=== PATIENT | male | born 1955 | race Caucasian/White ===

== ENCOUNTER 2025-03-02 | Inpatient (IN) | payer MEDICARE, OTHER ==
[2025-03-02] VITALS (15 sets, daily range): BP systolic 115–143; BP diastolic 49–70; PULSE 58–72; RESP 17–99; TEMP 97.8–98.7; O2SAT 97–99
[~2025-03-02] VITALS: Ht 185.4 cm; Wt 148.6 kg
[2025-03-02 01:18] LABS: Hematocrit 19.5 % (41.0-53.0); Mean Corpuscular Hemoglobin 22.3 pg (28.0-32.0); Mean Corpuscular Volume 75.3 fL (80.0-100.0); Nucleated Red Blood Cells % 0.0 %
[2025-03-02 01:22] LABS: Hemoglobin 5.8 g/dL (13.5-17.5)
--- NOTE | 2025-03-02 01:31 | ED.PDOC ---
History of Present Illness HPI Comments 69 y/o obese M is BIBA as a transfer from [facility] with c/c of shortness of breath and generalized weakness. Patient was transferred after being found with a Hgb of 6.4 when evaluated for 3x day history of symptoms. Significant history of anemia, AFib - Eliquis, HTN, and right nephrectomy s/p right renal carcinoma with metastasis. Denial of any chest pain, shortness of breath, rectal bleeding, bloody stools, or further associated symptoms. Chief Complaint: General Weakness Time Seen by MD: 00:00 Reviewed Notes: Nurses Notes, Crown Pouncer Notes, Medications, Allergies Allergies: Coded Allergies: Statins (Verified Allergy, Unknown, 03/02/25) Information Source: Patient, Emergency Med Personnel Mode of Arrival: EMS Severity: Moderate Timing: Days Duration: Since onset Prehospital treatment: 12 Lead EKG, Principal Planner Past Medical History PAST MEDICAL HISTORY: AFIB, Cancer (right renal cell carcinoma with metastati s), HTN Surgical History: Cholecystectomy Surgical History (Other): right nephrectomy Family History Family History: Unknown Social History Smoker: Non-Smoker Alcohol: Denies ETOH Use Drugs: Denies Drug Use Lives In: Home All Other Systems: Reviewed and Negative (Comprehensive systems review obtained and negative except for what is stated in the HPI.) Physical Exam General Appearance: Moderate Distress HEENT: Normal ENT Inspection, Pharynx Normal, TMs Normal Neck: Full Range of Motion, Non-Tender, Normal, Normal Inspection Respiratory: Chest Non-Tender, Lungs Clear, No Accessory Muscle Use, No Respiratory Distress, Normal Breath Sounds Cardiovascular: No Edema, No JVD, No Murmur, No Gallop, Normal Peripheral Pulses, Regular Rate/Rhythm Breast Exam: Deferred Gastrointestinal: No Organomegaly, Non Tender, No Pulsatile Mass, Normal Bowel Sounds, Soft Genitalia: Deferred Pelvic: Deferred Rectal: Deferred Extremities: No calf tenderness, Normal capillary refill, Normal inspection, Normal range of motion, Non-tender, No pedal edema Musculoskeletal : Apperance: Normal Neurologic: Alert, strap folding machine operator II-XII nml as Tested, No Motor Deficits, Normal Affect, Normal Mood, No Sensory Deficits Cerebellar Function: NOT DONE Reflexes: NOT DONE Skin: Pallor Peripheral Pulses: 3+ Radial (R), 3+ Radial (L) Lymphatic: No Adenopathy Was a procedure done? Was a procedure done?: No Differential Dx Considerations may include: anemia, URI, PNA, PE, ACS, OR, among others X-Ray, Labs, Meds, VS Vital Signs Date Time Temp Pulse Resp B/P (MAP) Pulse Ox O2 Delivery O2 Flow Rate FiO2 03/02/25 03:41 97.8 68 19 143/57 97.8 03/02/25 03:23 97.9 72 20 130/55 97.9 03/02/25 02:00 68 17 127/27 (60) 97 03/02/25 01:38 62 03/02/25 00:17 Room Air* 0 21 03/02/25 00:17 97.4 63 12 144/59 (87) 100 97.4 03/02/25 00:00 98.6 68 17 125/63 98 98.6 Lab Test 03/02/25 02:31 03/02/25 01:01 Range/Units Troponin I High Sensitivity 5 4 </=54 ng/L White Blood Count 8.7 4.4-10.8 10^3/uL Red Blood Count 2.59 L 4.5-5.90 10^6/uL Hemoglobin 5.8 *L 13.5-17.5 g/dL Hematocrit 19.5 L 41.0-53.0 % Mean Corpuscular Volume 75.3 L 80.0-100.0 fL Mean Corpuscular Hemoglobin 22.3 L 28.0-32.0 pg Mean Corpuscular Hemoglobin Concent 29.7 L 32.0-36.0 g/dL Red Cell Distribution Width 19.2 H 11.8-14.3 % Platelet Count 397 140-450 10^3/uL Mean Platelet Volume 7.0 6.9-10.8 fL Neutrophils (%) (Auto) 66.2 37.0-80.0 % Lymphocytes (%) (Auto) 21.3 10.0-50.0 % Monocytes (%) (Auto) 7.0 0.0-12.0 % Eosinophils (%) (Auto) 4.1 0.0-7.0 % Basophils (%) (Auto) 1.4 0.0-2.0 % Neutrophils # (Auto) 5.7 1.6-8.6 10 ^3/uL Lymphocytes # (Auto) 1.8 0.4-5.4 10 ^3/uL Monocytes # (Auto) 0.6 0-1.3 10 ^3/uL Eosinophils # (Auto) 0.4 0-0.8 10 ^3/uL Basophils # (Auto) 0.1 0-0.2 10 ^3/uL Nucleated Red Blood Cells 0.0 % Platelet Estimate [place] Large Platelets Few Hypochromasia (manual) Moderate Microcytosis Slight Ovalocytes Few Stomatocytes Few Prothrombin Time 11.3 9.3-11.8 sec Prothrombin Time INR 1.07 0.9-1.15 Activated Partial Thromboplast Time 27.9 24.5-34.5 SEC Sodium Level 141 136-145 mmol/L Potassium Level 4.1 3.5-5.1 mmol/L Chloride Level 109 H 98-107 mmol/L Carbon Dioxide Level 23 20-31 mmol/L Anion Gap 9 5-15 Blood Urea Nitrogen 27 H 9-23 mg/dL Creatinine 1.28 0.700-1.30 mg/dL Glomerular Filtration Rate Calc 60 >90 mL/min BUN/Creatinine Ratio 21.1 H 10.0-20.0 Serum Glucose 99 74-106 mg/dL Calcium Level 8.4 L 8.7-10.4 mg/dL Iron Level 14 L 65-175 ug/dL Total Iron Binding Capacity 365 250-425 ug/dL Percent Iron Saturation 3.8 L 20-55 % Ferritin Pending Total Bilirubin 0.5 0.2-1.0 mg/dL Aspartate Amino Transferase (AST) 18 13-40 U/L Alanine Aminotransferase (ALT) 14 7-40 U/L Alkaline Phosphatase 153 H 46-116 U/L B-Type Natriuretic Peptide 34.79 0-100 pg/mL Total Protein 6.2 5.7-8.2 g/dL Albumin 3.5 3.2-4.8 g/dL Vitamin B12 Level Pending Vitamin D 25-Hydroxy Pending Folic Acid Pending Thyroid Stimulating Hormone (TSH) 2.40 0.55-4.78 uIU/mL [address] [address] Ph: [phone] DIAGNOSTIC IMAGING Diagnostic Imaging Report : [id number] Signed PATIENT: ANABEL HOLLEY ACCT: [id number] UNIT: [id number] : 1955 LOC: ER ROOM / BED: / AGE / SEX: 69 / M ADM STATUS: REG ER SERVICE 000 ORDERING PHYSICIAN: VERITO JONES MD PROCEDURE(s): CXRP - CHEST PORTABLE REASON: sob ORDER NUMBER(s): [id number], ACCESSION NUMBER(s): [id number] CHEST RADIOGRAPH Indication: sob Technique: 1 view Comparison: None FINDINGS: Lines and Tubes: None Lungs/Pleura: Perihilar interstitial prominence. No focal consolidation, pleural effusion or pneumothorax. Cardiomediastinum: Enlarged heart size. Central pulmonary vascular prominence. Other: No acute osseous abnormality. IMPRESSION: 1. Heart failure pattern without focal consolidation. ATED BY: SANAM TAYLOR MD DICTATED DATE/TIME: 03/02/25245 SIGNED BY: SANAM TAYLOR MD SIGNED DATE/TIME: 03/02/25245 CC: Patient alert. Pale. He does take a blood thinner. Vitals stable. History of atrial fibrillation. Cardiac marker within normal limits. He is on a blood thinner. Denies bleeding. Hemoglobin is low. Blood transfusion. Reviewed his visit two with a base. Continue to monitoring. Time of 1ST Reevaluation: 00:30 Reevaluation 1ST: Unchanged Patient Education/Counseling: Diagnosis, Treatment Family Education/Counseling: No Family Present SEPSIS Sepsis Screen Date sepsis recognized/suspect: Mar 02, 2025 Time Sepsis recognized/suspect: 0000 Recent Procedure: No On Antibiotic Therapy: No Respiratory Rate >20: No Heart Rate >90: No Temp<36 C (96.8 F) or >38.3 C: No SBP <90 or MAP <65 mmHG: No New Acute Mental Status Change: No Is the patient on CPAP, BIPAP,: No Physician Orders Chest Portable (03/02/25 00:06) Urinalysis (03/02/25 00:06) Type And Screen (03/02/25 00:55) Electrocardigram (03/02/25 02:17) Admit (03/02/25 03:53) Nitroglycerin Sublingual (Ntrostat Subli (03/02/25 04:00) Morphine Sulfate Injection (03/02/25 04:00) Oxygen By Nasal Cannula (03/02/25 03:53) Stat Ekg For Chest Pain (03/02/25 03:53) Notify Md Of Changes From Base (03/02/25 03:53) Cloth Examiner Hand For 24 Hours (03/02/25 03:53) Emergency Dysrhythmia Protocol (03/02/25 03:53) Rhythm Strips Once Every Shift (03/02/25 03:53) Vital Signs Date Time Temp Pulse Resp B/P (MAP) Pulse Ox O2 Delivery O2 Flow Rate FiO2 03/02/25 03:41 97.8 68 19 143/57 97.8 03/02/25 03:23 97.9 72 20 130/55 97.9 03/02/25 02:00 68 17 127/27 (60) 97 03/02/25 01:38 62 03/02/25 00:17 Room Air* 0 21 03/02/25 00:17 97.4 63 12 144/59 (87) 100 97.4 03/02/25 00:00 98.6 68 17 125/63 98 98.6 Laboratory Tests Test 03/02/25 01:01 White Blood Count 8.7 10^3/uL (4.4-10.8) Departure 1 Departure Time of Disposition: 01:43 Impression: Primary Impression: Atrial fibrillation Qualified Codes: I48.0 - Paroxysmal atrial fibrillation Additional Impression: Severe anemia Disposition: ADMITTED INPATIENT Admit to: Med Surg Condition: Guarded Critical Care Note Critical Care Time?: Yes (90 min-critical care time only) Stability Stability form required: No Heart Score Heart Score: Heart Score Response (Comments) Value History Slightly Suspicious 0 EKG Normal 0 Age >65 2 Risk Factors >3 or Hx ASHD 2 Troponin Normal limit 0 Total 4 I personally scribed for VERITO JONES MD ([email or web address]) on 03/02/25 at 01:31. Electronically submitted by Haris Farias ([email or web address]). I personally scribed for VERITO JONES MD ([email or web address]) on 03/02/25 at 05:01. Electronically submitted by Haris Farias ([email or web address]). VERITO JONES MD Mar 02, 2025 01:31
[2025-03-02 01:36] LABS: Alanine Aminotransferase 14 U/L (7-40); Albumin 3.5 g/dL (3.2-4.8); Anion Gap 9 (5-15); BUN/Creatinine Ratio 21.1 (10.0-20.0); Bilirubin, Total 0.5 mg/dL (0.2-1.0); Carbon Dioxide 23 mmol/L (20-31); Glucose 99 mg/dL (74-106); Potassium 4.1 mmol/L (3.5-5.1); Sodium 141 mmol/L (136-145); Total Protein 6.2 g/dL (5.7-8.2)
[2025-03-02 01:37] LABS: Alkaline Phosphatase 153 U/L (46-116); Blood Urea Nitrogen 27 mg/dL (9-23); Calcium 8.4 mg/dL (8.7-10.4); Chloride 109 mmol/L (98-107)
[2025-03-02 01:54] LABS: Ovalocytes FEW; Stomatocytes Few
--- NOTE | 2025-03-02 02:49 | DVH ---
CHEST RADIOGRAPH Indication: sob Technique: 1 view Comparison: None FINDINGS: Lines and Tubes: None Lungs/Pleura: Perihilar interstitial prominence. No focal consolidation, pleural effusion or pneumoth orax. Cardiomediastinum: Enlarged heart size. Central pulmonary vascular prominence. Other: No acute osseous abnormality. IMPRESSION: 1. Heart failure pattern without focal consolidation.
[2025-03-02] MEDS ORDERED: NITROGLYCERIN 0.4 MG SL TAB SL PRN (04:00)
[2025-03-02] MEDS ORDERED: MORPHINE SULFATE INJ 2 MG/ml SYRG IV PRN (04:00)
--- NOTE | 2025-03-02 04:06 | DVHHP2 ---
History of Present Illness History of Present Illness Patient is 69-year-old male who came to the hospital with a chief complaint of generalized fatigability and generalized weakness for the past 7-10 days. Patient also complaining of shortness of breath for past 3-5 days as well. As per patient and his , patient had flu-like symptoms 7-10 days ago, was told at urgent Care that patient might have lung infection, treated with antibiotic, repeat x-ray came clear at urgent care. However patient continued to have generalized weakness and fatigue that prompted visit at one of the [facility] in [place]. 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 At [facility], patient found to hemoglobin 6.4, that prompted visit to [facility]. At the time of evaluation, patient denied any dark stool or prashanth blood in stool. During further evaluation patient found hemoglobin 5.8, 1 unit of PRBC initiated. At the time of 4:30 a.m. on 03/02/2025, patient reported that he had dark tarry blood stool. No abdominal pain, no chest pain, no shortness of breath, no motor or sensory weakness at this point. Patient denied fever, chills, any other symptoms as well. Past medical history: RCC in 2010, metastasis to pancreas in 2022, metastasis to lung in 2024, atrial fibrillation rate controlled, hypertension, CKD 3A Past surgical history, right nephrectomy in 2010, Whipple surgery in 2022, cryoablation in 2024, cholecystectomy in 2004 Allergy, none Family history unremarkable Personal history noncontributory Home medication: Eliquis 5 mg p.o. b.i.d., colesevelam 625 mg twice daily, metoprolol succinate 12.5 mg p.o. b.i.d., lisinopril 5 mg p.o. daily, flecainide 50 mg p.o. b.i.d., vitamin-D and iron supplement. Review of Systems Constitutional: No: Fever, Chills, Sweats, Weakness, Malaise, Other Eyes: No: Pain, Vision change, Conjunctivae inflammation, Eyelid inflammation, Other, Redness ENT: No: Ear pain, Ear discharge, Nose pain, Nose discharge, Nose congestion, Mouth pain, Mouth swelling, Throat pain, Throat swelling, Other Respiratory: No: Cough, Dry, Shortness of breath, SOB with excertion, Wheezing, Hemoptysis, Pleuritic Pain, Sputum, Wheezing, Other Cardiovascular: No: Chest Pain, Palpitations, Orthopnea, Paroxysmal Noc. Dyspnea, Edema, Lt Headedness, Other Gastrointestinal: No: Nausea, Vomiting, Abdominal Pain, Diarrhea, Constipation, Melena, Hematochezia, Other Genitourinary: No Dysuria, No Frequency, No Incontinence, No Hematuria, No Retention, No Other Musculoskeletal: No: other, neck pain, shoulder pain, arm pain, back pain, hand pain, leg pain, foot pain Neurological: Weakness; No: Numbness, Incoordination, Change in speech, Confusion, Seizures, Other Allergies: Coded Allergies: Statins (Verified Allergy, Unknown, 03/02/25) Medications Current Medications Medications Dose Ordered Sig/Fransico Route Start Time Stop Time Status Last Admin Dose Admin Nitroglycerin 0.4 mg Q5MINP PRN SL 03/02/25 04:00 Morphine Sulfate 2 mg Q30M PRN IV 03/02/25 04:00 Pantoprazole Sodium 40 mg DAILY IV 03/02/25 10:00 UNV Metoprolol Succinate 25 mg DAILY PO 03/02/25 10:00 UNV Lisinopril 5 mg DAILY PO 03/02/25 10:00 UNV Flecainide Acetate 50 mg Q12HR PO 03/02/25 10:00 UNV Exam Vital Signs Vital Signs Date Time Temp Pulse Resp B/P (MAP) Pulse Ox O2 Delivery O2 Flow Rate FiO2 03/02/25 03:41 97.8 68 19 143/57 97.8 03/02/25 02:00 97 03/02/25 00:17 Room Air* 0 21 Exam General Appearance: Cooperative. Well developed. Well nourished. NAD Head Exam: Normal inspection, pale conjunctivae Neck Exam: Normal inspection. Non-tender. Normal alignment Pulmonary/Respiratory: Chest non-tender. Clear bilateral breath sounds Cardiovascular/Chest: Regular rate and rhythm. No murmurs. No JVD. Peripheral Pulses: 2+ Radial (R). 2+ Radial (L). 2+ Pedal (R). 2+ Pedal (L) Abdominal Exam: Normal bowel sounds. Soft. Nontender. No hepatospenomegaly. No masses Ankle Exam: Negative ankle edema Lower extremities: Negative lower extremity edema Neuro/Mental Status: A&O x4. Coherent Thoughts/Psych: Normal thought pattern. Appropriate mood and affect. Good judgement and insight Appearance: In no acute distress Skin Exam: Normal inspection. Normal color. Warm. Dry Labs/Xrays Labs Test 03/02/25 02:31 03/02/25 01:01 Range/Units Troponin I High Sensitivity 5 </=54 ng/L White Blood Count 8.7 4.4-10.8 10^3/uL Red Blood Count 2.59 L 4.5-5.90 10^6/uL Hemoglobin 5.8 *L 13.5-17.5 g/dL Hematocrit 19.5 L 41.0-53.0 % Mean Corpuscular Volume 75.3 L 80.0-100.0 fL Mean Corpuscular Hemoglobin 22.3 L 28.0-32.0 pg Mean Corpuscular Hemoglobin Concent 29.7 L 32.0-36.0 g/dL Red Cell Distribution Width 19.2 H 11.8-14.3 % Platelet Count 397 140-450 10^3/uL Mean Platelet Volume 7.0 6.9-10.8 fL Neutrophils (%) (Auto) 66.2 37.0-80.0 % Lymphocytes (%) (Auto) 21.3 10.0-50.0 % Monocytes (%) (Auto) 7.0 0.0-12.0 % Eosinophils (%) (Auto) 4.1 0.0-7.0 % Basophils (%) (Auto) 1.4 0.0-2.0 % Neutrophils # (Auto) 5.7 1.6-8.6 10 ^3/uL Lymphocytes # (Auto) 1.8 0.4-5.4 10 ^3/uL Monocytes # (Auto) 0.6 0-1.3 10 ^3/uL Eosinophils # (Auto) 0.4 0-0.8 10 ^3/uL Basophils # (Auto) 0.1 0-0.2 10 ^3/uL Nucleated Red Blood Cells 0.0 % Platelet Estimate [place] Large Platelets Few Hypochromasia (manual) Moderate Microcytosis Slight Ovalocytes Few Stomatocytes Few Sodium Level 141 136-145 mmol/L Potassium Level 4.1 3.5-5.1 mmol/L Chloride Level 109 H 98-107 mmol/L Carbon Dioxide Level 23 20-31 mmol/L Anion Gap 9 5-15 Blood Urea Nitrogen 27 H 9-23 mg/dL Creatinine 1.28 0.700-1.30 mg/dL Glomerular Filtration Rate Calc 60 >90 mL/min BUN/Creatinine Ratio 21.1 H 10.0-20.0 Serum Glucose 99 74-106 mg/dL Calcium Level 8.4 L 8.7-10.4 mg/dL Total Bilirubin 0.5 0.2-1.0 mg/dL Aspartate Amino Transferase (AST) 18 13-40 U/L Alanine Aminotransferase (ALT) 14 7-40 U/L Alkaline Phosphatase 153 H 46-116 U/L B-Type Natriuretic Peptide 34.79 0-100 pg/mL Total Protein 6.2 5.7-8.2 g/dL Albumin 3.5 3.2-4.8 g/dL SEPSIS Sepsis Screen Date sepsis recognized/suspect: Mar 02, 2025 Time Sepsis recognized/suspect: 0017 Recent Procedure: No On Antibiotic Therapy: No Respiratory Rate >20: No Heart Rate >90: No Temp<36 C (96.8 F) or >38.3 C: No SBP <90 or MAP <65 mmHG: No New Acute Mental Status Change: No Is the patient on CPAP, BIPAP,: No Physician Orders Chest Portable (03/02/25 00:06) Urinalysis (03/02/25 00:06) Type And Screen (03/02/25 00:55) Electrocardigram (03/02/25 02:17) Admit (03/02/25 03:53) Nitroglycerin Sublingual (Ntrostat Subli (03/02/25 04:00) Morphine Sulfate Injection (03/02/25 04:00) Oxygen By Nasal Cannula (03/02/25 03:53) Stat Ekg For Chest Pain (03/02/25 03:53) Notify Md Of Changes From Base (03/02/25 03:53) Fibrous Plasterer For 24 Hours (03/02/25 03:53) Emergency Dysrhythmia Protocol (03/02/25 03:53) Rhythm Strips Once Every Shift (03/02/25 03:53) Thyroid Stimulating Hormone (03/02/25 03:53) PTPTT (03/02/25 03:53) Magnesium (03/03/25 04:00) Pt Request For Service (03/02/25 03:53) Iron Panel (03/02/25 03:53) Ferritin (03/02/25 03:53) Stool Occult Blood (03/02/25 03:56) * [facility] Storekeeper Engineering (03/02/25 03:56) Pantoprazole (Protonix) (03/02/25 10:00) Pantoprazole (Protonix) (03/02/25 04:00) Metoprolol Xl Succinate (Toprol Xl) (03/02/25 10:00) Lisinopril Tablet (Zestril Tablet) (03/02/25 10:00) Flecainide Tablet (Tambocor Tablet) (03/02/25 10:00) * Cardiology Consult (03/02/25 03:59) Sequential Compression Device (03/02/25 04:00) Vitamin B12 (03/02/25 04:00) Folate (Folic Acid) (03/02/25 04:00) Vitamin D, 25-Hydroxy (03/02/25 04:00) Hemoglobin & Hematocrit (03/02/25 10:00) Vital Signs Date Time Temp Pulse Resp B/P (MAP) Pulse Ox O2 Delivery O2 Flow Rate FiO2 03/02/25 03:41 97.8 68 19 143/57 97.8 03/02/25 03:23 97.9 72 20 130/55 97.9 03/02/25 02:00 68 17 127/27 (60) 97 03/02/25 01:38 62 03/02/25 00:17 Room Air* 0 21 03/02/25 00:17 97.4 63 12 144/59 (87) 100 97.4 03/02/25 00:00 98.6 68 17 125/63 98 98.6 Laboratory Tests Test 03/02/25 01:01 White Blood Count 8.7 10^3/uL (4.4-10.8) Assessment/Plan Assessment/Plan Active lower GI bleed Severe microcytic hypochromic anemia Iron-deficiency anemia Renal cell carcinoma, metastasis to pancreas and lung Shortness of breath likely due to severe anemia/lung metastasis Hypertension Permanent Atrial fibrillation rate controlled CKD stage IIIA History of cholecystectomy Cardiomegaly History of biliary obstruction Dyslipidemia Plan/recommendation -IV Protonix 80 mg total bolus, IV Protonix drip, pending stool occult blood, GI consultation -GI consultation for further evaluation for lower GI bleed, possible upper or lower GI endoscopy. -Continue to monitor H&H q.12. -Iron-deficiency with low iron at 14, TIBC 365, saturation 3.8. IV iron sucrose 500 mg *5 bags -Atrial fibrillation: Continue metoprolol succinate 25 mg p.o. daily, flecainide 50 mg p.o. b.i.d., hold Eliquis given severe lower GI bleed/anemia. Cardiology consultation -CKD stage IIIA: Continue to monitor kidney function -Chest x-ray showed cardiomegaly without any consultation, no signs of CHF -Patient and his lives in [place], they have primary care physician and oncologist over there. -Poor prognosis -PUD prophylaxis with Protonix, DVT prophylaxis with SCD. Plan discussed with Dr. Xie Plan discussed with: Patient, Other My Orders Orders - RAYMOND SANTOS RESIDENT Procedure Category Date Status Time Admit ADMIT 03/02/25 Transmitted 03:53 Nitroglycerin PHA 03/02/25 In Process Sublingual (Ntrostat 04:00 Morphine Sulfate PHA 03/02/25 In Process Injection 04:00 Oxygen By Nasal RT 03/02/25 Transmitted Cannula 03:53 Stat Ekg For Chest BANNER 03/02/25 In Process Pain 03:53 Notify Of Changes BANNER 03/02/25 In Process From Base 03:53 Fibrous Plasterer For FATMATA 03/02/25 In Process 24 Hours 03:53 Emergency Dysrhythmia FATMATA 03/02/25 In Process Protocol 03:53 Rhythm Strips Once BANNER 03/02/25 In Process Every Shift 03:53 Thyroid Stimulating LAB 03/02/25 Logged Hormone 03:53 PTPTT LAB 03/02/25 Logged 03:53 Magnesium LAB 03/03/25 Verified 04:00 Pt Request For Service PT 03/02/25 Logged 03:53 Iron Panel LAB 03/02/25 Logged 03:53 Ferritin LAB 03/02/25 Logged 03:53 Stool Occult Blood LAB 03/02/25 Logged 03:56 * [facility] [employer] CONS 03/02/25 Transmitted 03:56 Pantoprazole PHA 03/02/25 Logged (Protonix) 10:00 Pantoprazole PHA 03/02/25 Logged (Protonix) 04:00 Metoprolol Xl PHA 03/02/25 Logged Succinate (Toprol Xl) 10:00 Lisinopril Tablet PHA 03/02/25 Logged (Zestril Tablet) 10:00 Flecainide Tablet PHA 03/02/25 Logged (Tambocor Tablet) 10:00 * Cardiology Consult CONS 03/02/25 Transmitted 03:59 Sequential FATMATA 03/02/25 In Process Compression Device 04:00 Vitamin B12 LAB 03/02/25 Logged 04:00 Folate (Folic Acid) LAB 03/02/25 Logged 04:00 Vitamin D, 25-Hydroxy LAB 03/02/25 Logged 04:00 Hemoglobin & LAB 03/02/25 Logged Hematocrit 10:00 Date of Service: Mar 02, 2025 Billing Provider: DENNISE LU MD Common Visit Codes: [id number] INP/OBS CARE (HIGH) RAYMOND SANTOS RESIDENT Mar 02, 2025 04:06
[2025-03-02 04:33] LABS: Iron 14.0 ug/dL (65-175)
[2025-03-02 04:35] LABS: Total Iron Binding Capacity 365.0 ug/dL (250-425)
[2025-03-02 04:39] LABS: INR 1.07 (0.9-1.15); Partial Thromboplastin Time 27.9 SEC (24.5-34.5); Prothrombin Time 11.3 sec (9.3-11.8)
[2025-03-02] MEDS: PANTOPRAZOLE 40 MG/10 ML VIAL INJ IV ONE ×2 (04:48→05:26)
[2025-03-02] MEDS: PANTOPRAZOLE 40mg/50ML NS AE 50 ML IV SCH (05:29)
[2025-03-02] MEDS ORDERED: [UNRECOGNIZED DRUG - CODE] PO (07:02)
[2025-03-02] MEDS: METOPROLOL SUCCINATE XL 50 MG TAB PO SCH (09:55)
[2025-03-02] MEDS: FLECAINIDE ACETATE 50 MG TAB PO SCH (09:56)
[2025-03-02] MEDS: LISINOPRIL 5 MG TAB PO SCH (09:56)
[2025-03-02] MEDS ORDERED: PANTOPRAZOLE 40 MG/10 ML VIAL INJ IV SCH (10:00)
[2025-03-02 10:59] LABS: Urine Protein, UAD Negative (Negative)
--- NOTE | 2025-03-02 11:10 | DVHINCON2 ---
Date Seen: Mar 02, 2025 Referring Physician MD Anne Reason for Consultation A-fib History of Present Illness This is a pleasant 69-year-old male who presented to the emergency room as a transfer from [facility] ([facility]) with a chief complaint of severe anemia. The patient reports that approximately a week ago he started developing generalized weakness, increased fatigue, shortness of breath, and chest pain with symptom progression prompting him to seek further medical attention. [facility] emergency room records were reviewed revealing a 12 lead electrocardiogram with a normal sinus rhythm and no evidence of acute ST-T wave changes, a negative troponin level, Hgb/Hct 6.4/21.9, platelets 467, Creatinine 1.5, negative Influenza A&B, and negative COVID-19. Reports dark tarry stools for the first time last night. Denies hematemesis or epistaxis. He last took Eliquis 5 mg the morning of . Follows up with primary manager of housekeeping in [place] with last follow-up completed 4 months ago. Last non-ischemic stress test was completed on August,. Denies any cardiac catheterizations in the past. 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 Past Medical History Past medical history reviewed. No other significant than mentioned above. Past Surgical History Right nephrectomy, 2010 Whipple procedure, 2022 Pulmonary cryoablation, 2024 Cholecystectomy Bilateral knees Family History Family history reviewed. Social History Denies the use of illicit drugs, alcohol, or tobacco use. Allergies: Coded Allergies: Statins (Verified Allergy, Unknown, 03/02/25) Home Meds Reported Medications Colesevelam Hcl (Welchol) 3.75 Gm Jt, 625 MG PO BID, PACK 03/02/25 Home Meds Home medications reviewed. Current Medications Current Medications Medications (Trade) Dose Ordered Sig/Fransico Route PRN Reason Start Time Stop Time Status Last Admin Nitroglycerin (Ntrostat Sublingual) 0.4 mg Q5MINP PRN SL FOR CHEST PAIN 03/02/25 04:00 Morphine Sulfate 2 mg Q30M PRN IV FOR CHEST PAIN 03/02/25 04:00 Pantoprazole Sodium (Protonix) 40 mg DAILY IV 03/02/25 10:00 03/02/25 07:37 DC Metoprolol Succinate (Toprol Xl) 25 mg DAILY PO 03/02/25 10:00 Lisinopril (Zestril Tablet) 5 mg DAILY PO 03/02/25 10:00 Flecainide Acetate (Tambocor Tablet) 50 mg Q12HR PO 03/02/25 10:00 03/02/25 09:56 Pantoprazole Sodium 50 ml @ 10 mls/hr Q5H IV 03/02/25 05:00 03/02/25 09:54 Iron Sucrose 110 ml @ 110 mls/hr DAILY@1200 IV 03/02/25 12:00 03/06/25 12:59 Review of Systems Constitutional: Fatigue, generalized weakness Ears, Nose, & Throat: No symptom reported Eyes: No symptom reported Neurological: No symptoms reported Pulmonary/Respiratory: SOB Cardiovascular: Chest pain Gastrointestinal: No symptom reported Genitourinary: No symptom reported Musculoskeletal: No symptom reported Skin: No symptom reported Psychiatric: No symptom reported Endocrine: No symptom reported Hemotologic/Lymphatic: No symptom reported Vital Signs Vital Signs Date Time Temp Pulse Resp B/P (MAP) Pulse Ox O2 Delivery O2 Flow Rate FiO2 03/02/25 09:56 115/56 03/02/25 09:55 58 03/02/25 09:00 98.2 20 97 98.2 03/02/25 06:31 Room Air* 0 21 Physical Exam General Appearance: Cooperative. Well developed. Obese. In no acute distress Head Exam: Normal inspection Neck Exam: Normal inspection. Non-tender. Normal alignment Pulmonary/Respiratory: Chest non-tender. Clear bilateral breath sounds Cardiovascular/Chest: Regular rate and rhythm. S1, S2. NSR. No murmurs. No JVD. Peripheral Pulses: 2+ Radial (R). 2+ Radial (L). 2+ Pedal (R). 2+ Pedal (L) Abdominal Exam: Normal bowel sounds Ankle Exam: Negative ankle edema Lower extremities: Negative lower extremity edema Neuro/Mental Status: A&O x4. Coherent Thoughts/Psych: Normal thought pattern. Appropriate mood and affect. Good judgement and insight Appearance: In no acute distress Skin Exam: Normal inspection. Pale color. Warm. Dry Labs/Diagnostic Data Labs Test 03/02/25 10:36 03/02/25 02:31 03/02/25 01:01 Range/Units Troponin I High Sensitivity 5 </=54 ng/L White Blood Count 8.7 4.4-10.8 10^3/uL Red Blood Count 2.59 L 4.5-5.90 10^6/uL Hemoglobin 5.8 *L 13.5-17.5 g/dL Hematocrit 19.5 L 41.0-53.0 % Mean Corpuscular Volume 75.3 L 80.0-100.0 fL Mean Corpuscular Hemoglobin 22.3 L 28.0-32.0 pg Mean Corpuscular Hemoglobin Concent 29.7 L 32.0-36.0 g/dL Red Cell Distribution Width 19.2 H 11.8-14.3 % Platelet Count 397 140-450 10^3/uL Mean Platelet Volume 7.0 6.9-10.8 fL Neutrophils (%) (Auto) 66.2 37.0-80.0 % Lymphocytes (%) (Auto) 21.3 10.0-50.0 % Monocytes (%) (Auto) 7.0 0.0-12.0 % Eosinophils (%) (Auto) 4.1 0.0-7.0 % Basophils (%) (Auto) 1.4 0.0-2.0 % Neutrophils # (Auto) 5.7 1.6-8.6 10 ^3/uL Lymphocytes # (Auto) 1.8 0.4-5.4 10 ^3/uL Monocytes # (Auto) 0.6 0-1.3 10 ^3/uL Eosinophils # (Auto) 0.4 0-0.8 10 ^3/uL Basophils # (Auto) 0.1 0-0.2 10 ^3/uL Nucleated Red Blood Cells 0.0 % Platelet Estimate [place] Large Platelets Few Hypochromasia (manual) Moderate Microcytosis Slight Ovalocytes Few Stomatocytes Few Prothrombin Time 11.3 9.3-11.8 sec Prothrombin Time INR 1.07 0.9-1.15 Activated Partial Thromboplast Time 27.9 24.5-34.5 SEC Sodium Level 141 136-145 mmol/L Potassium Level 4.1 3.5-5.1 mmol/L Chloride Level 109 H 98-107 mmol/L Carbon Dioxide Level 23 20-31 mmol/L Anion Gap 9 5-15 Blood Urea Nitrogen 27 H 9-23 mg/dL Creatinine 1.28 0.700-1.30 mg/dL Glomerular Filtration Rate Calc 60 >90 mL/min BUN/Creatinine Ratio 21.1 H 10.0-20.0 Serum Glucose 99 74-106 mg/dL Calcium Level 8.4 L 8.7-10.4 mg/dL Iron Level 14 L 65-175 ug/dL Total Iron Binding Capacity 365 250-425 ug/dL Percent Iron Saturation 3.8 L 20-55 % Ferritin 8.5 L 22-322 ng/mL Total Bilirubin 0.5 0.2-1.0 mg/dL Aspartate Amino Transferase (AST) 18 13-40 U/L Alanine Aminotransferase (ALT) 14 7-40 U/L Alkaline Phosphatase 153 H 46-116 U/L B-Type Natriuretic Peptide 34.79 0-100 pg/mL Total Protein 6.2 5.7-8.2 g/dL Albumin 3.5 3.2-4.8 g/dL Thyroid Stimulating Hormone (TSH) 2.40 0.55-4.78 uIU/mL Assessment Paroxysmal atrial fibrillation, stage IIIA, now NSR (on Flecainide/BB/Eliquis at home) Rule out structural heart disease Severe anemia with a associated lower GI bleed Right renal cell carcinoma with METS to pancreas/lungs Status post Whipple procedure and pulmonary cryoablation Hypertension Dyslipidemia Obesity Plan/Recommendation (Dr. River) The patient is cardiac stable and maintaining a normal sinus rhythm. Recommendations are to continue low-dose beta arnaldo and Flecainide therapy. Avoid Eliquis therapy, AC therapy, or antiplatelet therapy and reestablish low- dose Eliquis only once cleared by GI team. We will continue further cardiac evaluation with a transthoracic echocardiogram to assess cardiac function. Obtain a FOBT and transfuse PRBCs as necessary. The patient can benefit from an outpatient left atrial appendage closure device to eliminate the need for long- term anticoagulation and to reduce the risk of strokes. In the setting of an unremarkable TTE, there is no further cardiac work-up indicated at this time. Kindly call with any questions or concerns. Thank you for allowing us to participate in this patient's care. Preprocedural cardiac risk stratification for upper/lower endoscopies: Revised cardiac risk index (Juan criteria): 0 points, 0.5% risk of , LA, or cardiac arrest. Patient has no underlying history of congestive heart failure, coronary artery disease, and has an optimal functional capacity. Per Cardiology standpoint, the patient is at an acceptable-risk for moderate-risk surgical interventions. This medical document was created using an electronic medical record system with voice recognition software and computerized dictation system. Although this document has been carefully reviewed, there might still be some phonetic and typographical errors. Occasional wrong-word or ``sound-alike substitutions may have occurred due to the inherent limitations of voice recognition software. These areas are purely typographical due to imperfections of the software programs and do not reflect any compromise in the patient's medical care. Please read the chart carefully and recognize, using context, where these substitutions have occurred. Plan discussed with: Patient, Other NYHA Physical activity limitations: NA Date of Service: Mar 02, 2025 Billing Provider: JOANNA MICHEL Cardiology Common Codes: [id number] INP/OBS CARE (High) JOANNA MICHEL Mar 02, 2025 11:10
--- NOTE | 2025-03-02 13:51 | ECG ---
[facility] Test Date: 2025-03-02 Test Time: 01:38:17 Pat Name: ANABEL HOLLEY Department: Room: 0209T Gender: M Last Model Department Supervisor: ASHKAN : 1955 Requested By: VERITO JONES Order Number: [id number] Reading MD: Trevin Villarreal Measurements Intervals [place] Rate: 62 P: 12 MO: 173 QRS: 23 QRSD: 99 T: 30 QT: 434 QTc: 441 Interpretive Statements Sinus rhythm Electronically Signed On 03-08-2025 20:19:59 PDT by Trevin Villarreal Please click the below link to view image of tracing.
[2025-03-02] MEDS: IRON SUCROSE COMPLEX 110 ML IV SCH (14:34)
[2025-03-02 17:32] LABS: Potassium 4.2 mmol/L (3.5-5.1); Sodium 144 mmol/L (136-145)
[2025-03-02 17:33] LABS: Anion Gap 10 (5-15); Carbon Dioxide 23 mmol/L (20-31); Hematocrit 23.4 % (41.0-53.0); Hemoglobin 7.4 g/dL (13.5-17.5); Mean Corpuscular Hemoglobin 24.5 pg (28.0-32.0); Mean Corpuscular Volume 77.3 fL (80.0-100.0); Nucleated Red Blood Cells % 0.1 %
[2025-03-02 17:38] LABS: BUN/Creatinine Ratio 20.8 (10.0-20.0); Glucose 96 mg/dL (74-106)
[2025-03-02 17:45] LABS: Blood Urea Nitrogen 25 mg/dL (9-23); Calcium 8.6 mg/dL (8.7-10.4); Chloride 111 mmol/L (98-107)
--- NOTE | 2025-03-02 20:38 | DVHINCON2 ---
Date of service: Mar 02, 2025 History of Present Illness Per HPI - 69-year-old male who came to the hospital with a chief complaint of generalized fatigability and generalized weakness for the past 7-10 days. Patient also complaining of shortness of breath for past 3-5 days as well. As per patient and his , patient had flu-like symptoms 7-10 days ago, was told at urgent Care that patient might have lung infection, treated with antibiotic, repeat x-ray came clear at urgent care. However patient continued to have generalized weakness and fatigue that prompted visit at one of the [facility] in [place]. 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 At [facility], patient found to hemoglobin 6.4, that prompted visit to [facility]. At the time of evaluation, patient denied any dark stool or prashanth blood in stool. During further evaluation patient found hemoglobin 5.8, 1 unit of PRBC in itiated. At the time of 4:30 a.m. on 03/02/2025, patient reported that he had dark tarry blood stool. No abdominal pain, no chest pain, no shortness of breath, no motor or sensory weakness at this point. Patient denied fever, chills, any other symptoms as well. He reports having melena since 02/26. bedside. Denies hematochezia/hematemesis/abd pain/N/V. Admits to SOB and pre-syncope and fatigue. No chest pain. He had EGD/colo >5 yrs ago, normal per pt. takes Eliquis, last dose 10/4 AM. He had blood transfusion in 1974 Past Medical History Reviewed Past Surgical History Reviewed Family History: Cardiovascular disease G8 MOTHER G8 FATHER Allergies: Coded Allergies: Statins (Verified Allergy, Unknown, 03/02/25) Home Meds Reported Medications Colesevelam Hcl (Welchol) 3.75 Gm Jt, 625 MG PO BID, PACK 03/02/25 Current Medications Current Medications Medications (Trade) Dose Ordered Sig/Fransico Route PRN Reason Start Time Stop Time Status Last Admin Nitroglycerin (Ntrostat Sublingual) 0.4 mg Q5MINP PRN SL FOR CHEST PAIN 03/02/25 04:00 Morphine Sulfate 2 mg Q30M PRN IV FOR CHEST PAIN 03/02/25 04:00 Pantoprazole Sodium (Protonix) 40 mg DAILY IV 03/02/25 10:00 03/02/25 07:37 DC Metoprolol Succinate (Toprol Xl) 25 mg DAILY PO 03/02/25 10:00 Lisinopril (Zestril Tablet) 5 mg DAILY PO 03/02/25 10:00 03/02/25 10:44 DC Flecainide Acetate (Tambocor Tablet) 50 mg Q12HR PO 03/02/25 10:00 03/02/25 09:56 Pantoprazole Sodium 50 ml @ 10 mls/hr Q5H IV 03/02/25 05:00 03/02/25 15:09 Iron Sucrose 110 ml @ 110 mls/hr DAILY@1200 IV 03/02/25 12:00 03/06/25 12:59 03/02/25 14:34 Review of Systems 14 point ROS negative except mentioned above Vital Signs Vital Signs Date Time Temp Pulse Resp B/P (MAP) Pulse Ox O2 Delivery O2 Flow Rate FiO2 03/02/25 17:09 98.5 64 20 130/54 (79) 99 98.5 03/02/25 07:40 Room Air* 0 21 Physical Exam GE: in no acute distress CVS: S1S2+ Lungs: clear Abdomen: soft, nondistended, nontender, BS+ Labs/Diagnostic Data Labs Test 03/02/25 17:16 03/02/25 17:00 03/02/25 10:36 03/02/25 02:31 Range/Units White Blood Count 7.4 4.4-10.8 10^3/uL Red Blood Count 3.03 L 4.5-5.90 10^6/uL Hemoglobin 7.4 #L 13.5-17.5 g/dL Hematocrit 23.4 #L 41.0-53.0 % Mean Corpuscular Volume 77.3 L 80.0-100.0 fL Mean Corpuscular Hemoglobin 24.5 L 28.0-32.0 pg Mean Corpuscular Hemoglobin Concent 31.7 L 32.0-36.0 g/dL Red Cell Distribution Width 20.4 H 11.8-14.3 % Platelet Count 360 140-450 10^3/uL Mean Platelet Volume 6.9 6.9-10.8 fL Neutrophils (%) (Auto) 69.7 37.0-80.0 % Lymphocytes (%) (Auto) 17.9 10.0-50.0 % Monocytes (%) (Auto) 6.4 0.0-12.0 % Eosinophils (%) (Auto) 5.2 0.0-7.0 % Basophils (%) (Auto) 0.8 0.0-2.0 % Neutrophils # (Auto) 5.2 1.6-8.6 10 ^3/uL Lymphocytes # (Auto) 1.3 0.4-5.4 10 ^3/uL Monocytes # (Auto) 0.5 0-1.3 10 ^3/uL Eosinophils # (Auto) 0.4 0-0.8 10 ^3/uL Basophils # (Auto) 0.1 0-0.2 10 ^3/uL Nucleated Red Blood Cells 0.1 % Sodium Level 144 136-145 mmol/L Potassium Level 4.2 3.5-5.1 mmol/L Chloride Level 111 H 98-107 mmol/L Carbon Dioxide Level 23 20-31 mmol/L Anion Gap 10 5-15 Blood Urea Nitrogen 25 H 9-23 mg/dL Creatinine 1.20 0.700-1.30 mg/dL Glomerular Filtration Rate Calc 65 >90 mL/min BUN/Creatinine Ratio 20.8 H 10.0-20.0 Serum Glucose 96 74-106 mg/dL Calcium Level 8.6 L 8.7-10.4 mg/dL Stool Occult Blood Positive Negative Stool Occult Blood Sample #3 Negative Urine Color Light-yellow Yellow Urine Clarity Clear Clear Urine pH 6.0 5.0-9.0 Urine Specific [place] 1.015 1.001-1.035 Urine Protein Negative Negative Urine Ketones Negative Negative Urine Blood Negative Negative /uL Urine Nitrite Negative Negative Urine Bilirubin Negative Negative Urine Urobilinogen Normal Negative mg/dL Urine Leukocyte Esterase Negative Negative /uL Urine RBC <1 0 - 3 /hpf Urine Microscopic WBC 0-3 /HPF Urine Squamous Epithelial Cells None seen <5 /hpf Urine Bacteria None seen None Seen /hpf Urine Glucose Normal Normal mg/dL Troponin I High Sensitivity 5 </=54 ng/L Test 10/5/25 01:01 Range/Units Platelet Estimate [place] Large Platelets Few Hypochromasia (manual) Moderate Microcytosis Slight Ovalocytes Few Stomatocytes Few Prothrombin Time 11.3 9.3-11.8 sec Prothrombin Time INR 1.07 0.9-1.15 Activated Partial Thromboplast Time 27.9 24.5-34.5 SEC Iron Level 14 L 65-175 ug/dL Total Iron Binding Capacity 365 250-425 ug/dL Percent Iron Saturation 3.8 L 20-55 % Ferritin 8.5 L 22-322 ng/mL Total Bilirubin 0.5 0.2-1.0 mg/dL Aspartate Amino Transferase (AST) 18 13-40 U/L Alanine Aminotransferase (ALT) 14 7-40 U/L Alkaline Phosphatase 153 H 46-116 U/L B-Type Natriuretic Peptide 34.79 0-100 pg/mL Total Protein 6.2 5.7-8.2 g/dL Albumin 3.5 3.2-4.8 g/dL Thyroid Stimulating Hormone (TSH) 2.40 0.55-4.78 uIU/mL Assessment #Melena #Severe anemia #Fatigue #SOB #Afib, on Eliquis, last intake, 03/01 #CKD #Hx of RCC with mets to pancreas s/p whipple procedure -Monitor Hb, keep >8 -PPI drip -Pt seen by industrial cafeteria manager, ok to proceed with EGD, mod risk noted per notes -Plan EGD with MAC by Dr Guo on Monday, due to last Eliquis intake, if clinical status remains stable. Procedure details, benefits and risks discussed in detail Pt and bedside agreeable to proceed -Consider colonoscopy, only if above unremarkable -Care plan discussed with pt and in detail Thank you for the consult. Plan discussed with: Patient, Other LILLIAM MAN MD Mar 02, 2025 20:38
[2025-03-02 22:00] LABS: Hematocrit 24.7 % (41.0-53.0); Hemoglobin 7.8 g/dL (13.5-17.5)
--- NOTE | 2025-03-02 23:30 | DVHINCON2 ---
Date Seen: Mar 02, 2025 Referring Physician MD Anne Reason for Consultation A-fib History of Present Illness This is a 69-year-old male with a past medical history of paroxysmal atrial fibrillation on Flecainide/Metoprolol/Eliquis therapy, status post direct current cardioversions x 5 with latest on 2024, hypertension, dyslipidemia, right renal cell carcinoma diagnosed in 2010 status post right nephrectomy and metastasis to pancreas status post Whipple sx (2022) and pulmonary metastasis status post cryoablation (2024), chronic kidney disease stage 3, diverticulitis, and obesity who presented to the emergency room as a transfer from [facility] ([facility]) with a complaint of severe anemia. The patient reports that approximately a week ago he started developing generalized weakness, increased fatigue, shortness of breath, and chest pain with symptom progression prompting him to seek further medical attention. [facility] emergency room records were reviewed revealing a 12 lead electrocardiogram with a normal sinus rhythm and no evidence of acute ST-T wave changes, a negative troponin level, Hgb/Hct 6.4/21.9, platelets 467, Creatinine 1.5, negative Influenza A&B, and negative COVID-19. Reports dark tarry stools for the first time last night. Denies hematemesis or epistaxis. He last took Eliquis 5 mg the morning of . Follows up with primary home aid in [place] with last follow-up completed 4 months ago. Last non-ischemic stress test was completed on August,. Denies any cardiac catheterizations in the past. Patient was admitted to the hospital. I am asked to consult on this patient. Past Medical History Past medical history reviewed. No other significant than mentioned above. Past Surgical History Right nephrectomy, 2010 Whipple procedure, 2022 Pulmonary cryoablation, 2024 Cholecystectomy Bilateral knees Family History: Cardiovascular disease G8 MOTHER G8 FATHER Allergies: Coded Allergies: Statins (Verified Allergy, Unknown, 03/02/25) Home Meds Reported Medications Colesevelam Hcl (Welchol) 3.75 Gm Jt, 625 MG PO BID, PACK 03/02/25 Current Medications Current Medications Medications (Trade) Dose Ordered Sig/Fransico Route PRN Reason Start Time Stop Time Status Last Admin Nitroglycerin (Ntrostat Sublingual) 0.4 mg Q5MINP PRN SL FOR CHEST PAIN 03/02/25 04:00 Morphine Sulfate 2 mg Q30M PRN IV FOR CHEST PAIN 03/02/25 04:00 Pantoprazole Sodium (Protonix) 40 mg DAILY IV 03/02/25 10:00 03/02/25 07:37 DC Metoprolol Succinate (Toprol Xl) 25 mg DAILY PO 03/02/25 10:00 Lisinopril (Zestril Tablet) 5 mg DAILY PO 03/02/25 10:00 03/02/25 10:44 DC Flecainide Acetate (Tambocor Tablet) 50 mg Q12HR PO 03/02/25 10:00 03/02/25 09:56 Pantoprazole Sodium 50 ml @ 10 mls/hr Q5H IV 03/02/25 05:00 03/02/25 09:54 Iron Sucrose 110 ml @ 110 mls/hr DAILY@1200 IV 03/02/25 12:00 03/06/25 12:59 03/02/25 14:34 Review of Systems Constitutional: Fatigue, generalized weakness Ears, Nose, & Throat: No symptom reported Eyes: No symptom reported Neurological: No symptoms reported Pulmonary/Respiratory: SOB Cardiovascular: Chest pain Gastrointestinal: No symptom reported Genitourinary: No symptom reported Musculoskeletal: No symptom reported Skin: No symptom reported Psychiatric: No symptom reported Endocrine: No symptom reported Hemotologic/Lymphatic: No symptom reported Vital Signs Vital Signs Date Time Temp Pulse Resp B/P (MAP) Pulse Ox O2 Delivery O2 Flow Rate FiO2 03/02/25 14:14 98.7 62 18 139/69 98.7 03/02/25 12:56 99 03/02/25 07:40 Room Air* 0 21 Physical Exam GENERAL: Alert and oriented x 3. No acute distress. Obese. EYES: PERRL, EOMI. Anicteric. HENT: Moist mucous membranes. LUNGS: Clear to auscultation bilaterally. CARDIOVASCULAR: Regular rate and rhythm. ABDOMEN: Soft, nontender and nondistended. EXTREMITIES: No edema. NEUROLOGIC: No focal neurological deficits. SKIN: Warm, dry. Labs/Diagnostic Data Labs Test 03/02/25 10:36 03/02/25 02:31 03/02/25 01:01 Range/Units Urine Color Light-yellow Yellow Urine Clarity Clear Clear Urine pH 6.0 5.0-9.0 Urine Specific [place] 1.015 1.001-1.035 Urine Protein Negative Negative Urine Ketones Negative Negative Urine Blood Negative Negative /uL Urine Nitrite Negative Negative Urine Bilirubin Negative Negative Urine Urobilinogen Normal Negative mg/dL Urine Leukocyte Esterase Negative Negative /uL Urine RBC <1 0 - 3 /hpf Urine Microscopic WBC 0-3 /HPF Urine Squamous Epithelial Cells None seen <5 /hpf Urine Bacteria None seen None Seen /hpf Urine Glucose Normal Normal mg/dL Troponin I High Sensitivity 5 </=54 ng/L White Blood Count 8.7 4.4-10.8 10^3/uL Red Blood Count 2.59 L 4.5-5.90 10^6/uL Hemoglobin 5.8 *L 13.5-17.5 g/dL Hematocrit 19.5 L 41.0-53.0 % Mean Corpuscular Volume 75.3 L 80.0-100.0 fL Mean Corpuscular Hemoglobin 22.3 L 28.0-32.0 pg Mean Corpuscular Hemoglobin Concent 29.7 L 32.0-36.0 g/dL Red Cell Distribution Width 19.2 H 11.8-14.3 % Platelet Count 397 140-450 10^3/uL Mean Platelet Volume 7.0 6.9-10.8 fL Neutrophils (%) (Auto) 66.2 37.0-80.0 % Lymphocytes (%) (Auto) 21.3 10.0-50.0 % Monocytes (%) (Auto) 7.0 0.0-12.0 % Eosinophils (%) (Auto) 4.1 0.0-7.0 % Basophils (%) (Auto) 1.4 0.0-2.0 % Neutrophils # (Auto) 5.7 1.6-8.6 10 ^3/uL Lymphocytes # (Auto) 1.8 0.4-5.4 10 ^3/uL Monocytes # (Auto) 0.6 0-1.3 10 ^3/uL Eosinophils # (Auto) 0.4 0-0.8 10 ^3/uL Basophils # (Auto) 0.1 0-0.2 10 ^3/uL Nucleated Red Blood Cells 0.0 % Platelet Estimate [place] Large Platelets Few Hypochromasia (manual) Moderate Microcytosis Slight Ovalocytes Few Stomatocytes Few Prothrombin Time 11.3 9.3-11.8 sec Prothrombin Time INR 1.07 0.9-1.15 Activated Partial Thromboplast Time 27.9 24.5-34.5 SEC Sodium Level 141 136-145 mmol/L Potassium Level 4.1 3.5-5.1 mmol/L Chloride Level 109 H 98-107 mmol/L Carbon Dioxide Level 23 20-31 mmol/L Anion Gap 9 5-15 Blood Urea Nitrogen 27 H 9-23 mg/dL Creatinine 1.28 0.700-1.30 mg/dL Glomerular Filtration Rate Calc 60 >90 mL/min BUN/Creatinine Ratio 21.1 H 10.0-20.0 Serum Glucose 99 74-106 mg/dL Calcium Level 8.4 L 8.7-10.4 mg/dL Iron Level 14 L 65-175 ug/dL Total Iron Binding Capacity 365 250-425 ug/dL Percent Iron Saturation 3.8 L 20-55 % Ferritin 8.5 L 22-322 ng/mL Total Bilirubin 0.5 0.2-1.0 mg/dL Aspartate Amino Transferase (AST) 18 13-40 U/L Alanine Aminotransferase (ALT) 14 7-40 U/L Alkaline Phosphatase 153 H 46-116 U/L B-Type Natriuretic Peptide 34.79 0-100 pg/mL Total Protein 6.2 5.7-8.2 g/dL Albumin 3.5 3.2-4.8 g/dL Thyroid Stimulating Hormone (TSH) 2.40 0.55-4.78 uIU/mL Assessment Paroxysmal atrial fibrillation, stage IIIA, now NSR (on Flecainide/BB/Eliquis at home). Rule out structural heart disease. Severe anemia with a associated lower GI bleed. Right renal cell carcinoma with METS to pancreas/lungs. Status post Whipple procedure and pulmonary cryoablation. Hypertension. Dyslipidemia. Obesity. Plan/Recommendation I agree with your ongoing assessment and care of plan. Patient has been seen by Ricarda Carias NP on my behalf, her and I discussed the plan with the patient. The patient is cardiac stable and maintaining a normal sinus rhythm. Recommendations are to continue low-dose beta arnaldo and Flecainide therapy. Avoid Eliquis therapy, AC therapy, or antiplatelet therapy and reestablish low- dose Eliquis only once cleared by GI team. We will continue further cardiac evaluation with a transthoracic echocardiogram to assess cardiac function. Obtain a FOBT and transfuse PRBCs as necessary. The patient can benefit from an outpatient left atrial appendage closure device to eliminate the need for long-term anticoagulation and to reduce the risk of strokes. In the setting of an unremarkable TTE, there is no further cardiac work-up indicated at this time. Kindly call with any questions or concerns. Thank you for allowing us to participate in this patient's care. Preprocedural cardiac risk stratification for upper/lower endoscopies: Revised cardiac risk index (Juan criteria): 0 points, 0.5% risk of , MO, or cardiac arrest. Patient has no underlying history of congestive heart failure, coronary artery disease, and has an optimal functional capacity. Per Cardiology standpoint, the patient is at an acceptable-risk for moderate- risk surgical interventions. Additional plan as per the hospital course. Plan discussed with: Patient NYHA Physical activity limitations: NA Date of Service: Mar 02, 2025 Billing Provider: TONY DANIELSON MD Cardiology Common Codes: [id number] INP/OBS CARE (High) Cardiology Consultation Codes: [id number] CONSULT <45MIN TONY DANIELSON MD Mar 02, 2025 14:41
[2025-03-03] VITALS (9 sets, daily range): BP systolic 112–160; BP diastolic 48–68; PULSE 62–70; RESP 16–18; TEMP 97.5–98.9; O2SAT 95–97
[2025-03-03 08:08] LABS: Hemoglobin 7.9 g/dL (13.5-17.5); Mean Corpuscular Hemoglobin 24.7 pg (28.0-32.0); Nucleated Red Blood Cells % 0.1 %
[2025-03-03 08:10] LABS: Hematocrit 25.2 % (41.0-53.0); Mean Corpuscular Volume 78.8 fL (80.0-100.0)
[2025-03-03 08:25] LABS: Alanine Aminotransferase 16 U/L (7-40); Albumin 3.6 g/dL (3.2-4.8); Alkaline Phosphatase 145 U/L (46-116); Anion Gap 11 (5-15); BUN/Creatinine Ratio 16.1 (10.0-20.0); Bilirubin, Total 1.2 mg/dL (0.2-1.0); Blood Urea Nitrogen 22 mg/dL (9-23); Calcium 8.8 mg/dL (8.7-10.4); Carbon Dioxide 22 mmol/L (20-31); Chloride 110 mmol/L (98-107); Glucose 102 mg/dL (74-106); Potassium 4.4 mmol/L (3.5-5.1); Sodium 143 mmol/L (136-145); Total Protein 6.2 g/dL (5.7-8.2)
--- NOTE | 2025-03-03 13:06 | DVHPN2 ---
Subjective No new complaints Changes from previous H/P or p: No Changes Eyes: No Pain, No Vision change, No Conjunctivae inflammation, No Eyelid inflammation, No Other, No Redness ENT: No Ear pain, No Ear discharge, No Nose pain, No Nose discharge, No Nose congestion, No Mouth pain, No Mouth swelling, No Throat pain, No Throat swelling, No Other Cardiovascular: No Chest Pain, No Palpitations, No Orthopnea, No Paroxysmal Noc. Dyspnea, No Edema, No Lt Headedness, No Other Respiratory: No Cough, No Dry, No Shortness of breath, No SOB with excertion, No Wheezing, No Hemoptysis, No Pleuritic Pain, No Sputum, No Other Gastrointestinal: No Nausea, No Vomiting, No Abdominal Pain, No Diarrhea, No Constipation, No Melena, No Hematochezia, No Other Genitourinary: No Dysuria, No Frequency, No Incontinence, No Hematuria, No Retention, No Other Musculoskeletal: No other, No neck pain, No shoulder pain, No arm pain, No back pain, No hand pain, No leg pain, No foot pain Objective Vitals Vital Signs Date Time Temp Pulse Resp B/P (MAP) Pulse Ox O2 Delivery O2 Flow Rate FiO2 03/03/25 09:29 71 143/62 03/03/25 08:46 97.9 16 95 97.9 03/03/25 07:50 Room Air* 0 21 Intake/Output Intake and Output 03/03/25 07:00 Intake Total 1420 ml Balance 1420 ml Intake Oral 660 ml IV Total 160 ml Blood Product 300 ml Other 300 ml # Voids 6 Exam A@Ox3, NAD Lungs: CTA Cardio RRR Abdomen: Soft,+ BS, nontender Medications Current Medications Medications Dose Ordered Sig/Fransico Route Start Time Stop Time Status Last Admin Dose Admin Nitroglycerin 0.4 mg Q5MINP PRN SL 03/02/25 04:00 Morphine Sulfate 2 mg Q30M PRN IV 03/02/25 04:00 Metoprolol Succinate 25 mg DAILY PO 03/02/25 10:00 03/03/25 09:29 25 MG Flecainide Acetate 50 mg Q12HR PO 03/02/25 10:00 03/03/25 09:29 50 MG Pantoprazole Sodium 50 ml @ 10 mls/hr Q5H IV 03/02/25 05:00 03/03/25 11:13 10 MLS/HR Iron Sucrose 110 ml @ 110 mls/hr DAILY@1200 IV 03/02/25 12:00 03/06/25 12:59 03/03/25 12:10 110 MLS/HR Laboratory Results Laboratory Tests 03/03/25 07:38 Chemistry Test 03/02/25 17:16 03/03/25 07:38 Calcium Level 8.6 mg/dL (8.7-10.4) L 8.8 mg/dL (8.7-10.4) Albumin 3.6 g/dL (3.2-4.8) Magnesium Level 2.1 mg/dL (1.6-2.6) Total Protein 6.2 g/dL (5.7-8.2) LFT Test 03/03/25 07:38 Alanine Aminotransferase (ALT) 16 U/L (7-40) Alkaline Phosphatase 145 U/L (46-116) H Aspartate Amino Transferase (AST) 25 U/L (13-40) Total Bilirubin 1.2 mg/dL (0.2-1.0) H Urinalysis Test 03/02/25 10:36 Urine Color Light-yellow (Yellow) Urine Clarity Clear (Clear) Urine pH 6.0 (5.0-9.0) Urine Specific [place] 1.015 (1.001-1.035) Urine Protein Negative (Negative) Urine Ketones Negative (Negative) Urine Blood Negative /uL (Negative) Urine Nitrite Negative (Negative) Urine Bilirubin Negative (Negative) Urine Urobilinogen Normal mg/dL (Negative) Urine Leukocyte Esterase Negative /uL (Negative) Urine RBC <1 /hpf (0 - 3) Urine Microscopic WBC /HPF (0-3) Urine Squamous Epithelial Cells None seen /hpf (<5) Urine Bacteria None seen /hpf (None Seen) Urine Glucose Normal mg/dL (Normal) Assessment/Plan Assessment/Plan #Melena #Severe anemia #Fatigue #SOB #Afib, on Eliquis, last intake, 03/01 #CKD #Hx of RCC with mets to pancreas s/p whipple Plan Discussed with Dr. Guo Scheduled for EGD for tomorrow 03/04/2025. Discussed risks, benefits and alternatives of procedure and sedation patient understands and agrees Plan discussed with: Patient, Spouse, Other (RN) Date of Service: Mar 03, 2025 Billing Provider: HARRISON ORTIZ Common Visit Codes: [id number] INP/OBS CARE(HIGH) HARRISON ORTIZ Mar 03, 2025 13:06
[2025-03-03 13:44] LABS: Hematocrit 24.3 % (41.0-53.0); Hemoglobin 7.5 g/dL (13.5-17.5)
--- NOTE | 2025-03-03 16:19 | DVHPN2 ---
Subjective I am assuming the care of the patient from today onwards. Patient is here for severe anemia was sent by [facility] currently status post 2 units of packed RBC. Patient does have known history of chronic AFib currently on Eliquis started having black tarry stool for last 3-4 days. Changes from previous H/P or p: No Changes Eyes: No Pain, No Vision change, No Conjunctivae inflammation, No Eyelid inflammation, No Other, No Redness ENT: No Ear pain, No Ear discharge, No Nose pain, No Nose discharge, No Nose congestion, No Mouth pain, No Mouth swelling, No Throat pain, No Throat swelling, No Other Cardiovascular: No Chest Pain, No Palpitations, No Orthopnea, No Paroxysmal Noc. Dyspnea, No Edema, No Lt Headedness, No Other Respiratory: No Cough, No Dry, No Shortness of breath, No SOB with excertion, No Wheezing, No Hemoptysis, No Pleuritic Pain, No Sputum, No Other Gastrointestinal: No Nausea, No Vomiting, No Abdominal Pain, No Diarrhea, No Constipation, No Melena, No Hematochezia, No Other Genitourinary: No Dysuria, No Frequency, No Incontinence, No Hematuria, No Retention, No Other Musculoskeletal: No other, No neck pain, No shoulder pain, No arm pain, No back pain, No hand pain, No leg pain, No foot pain Objective Vitals Vital Signs Date Time Temp Pulse Resp B/P (MAP) Pulse Ox O2 Delivery O2 Flow Rate FiO2 03/03/25 13:00 98.2 62 18 144/55 (84) 97 98.2 03/03/25 07:50 Room Air* 0 21 Intake/Output Intake and Output 03/03/25 07:00 Intake Total 1420 ml Balance 1420 ml Intake Oral 660 ml IV Total 160 ml Blood Product 300 ml Other 300 ml # Voids 6 Exam HEENT pupils are reactive Neck is supple CV is S1-S2 regular rate and rhythm Respiratory are clear GI posterior bowel sounds 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 Medications Current Medications Medications Dose Ordered Sig/Fransico Route Start Time Stop Time Status Last Admin Dose Admin Nitroglycerin 0.4 mg Q5MINP PRN SL 03/02/25 04:00 Morphine Sulfate 2 mg Q30M PRN IV 03/02/25 04:00 Metoprolol Succinate 25 mg DAILY PO 03/02/25 10:00 03/03/25 09:29 25 MG Flecainide Acetate 50 mg Q12HR PO 03/02/25 10:00 03/03/25 09:29 50 MG Pantoprazole Sodium 50 ml @ 10 mls/hr Q5H IV 03/02/25 05:00 03/03/25 11:13 10 MLS/HR Iron Sucrose 110 ml @ 110 mls/hr DAILY@1200 IV 03/02/25 12:00 03/06/25 12:59 03/03/25 12:10 110 MLS/HR Laboratory Results Laboratory Tests 03/03/25 07:38 03/03/25 13:00 Chemistry Test 03/02/25 17:16 03/03/25 07:38 Calcium Level 8.6 mg/dL (8.7-10.4) L 8.8 mg/dL (8.7-10.4) Albumin 3.6 g/dL (3.2-4.8) Magnesium Level 2.1 mg/dL (1.6-2.6) Total Protein 6.2 g/dL (5.7-8.2) LFT Test 03/03/25 07:38 Alanine Aminotransferase (ALT) 16 U/L (7-40) Alkaline Phosphatase 145 U/L (46-116) H Aspartate Amino Transferase (AST) 25 U/L (13-40) Total Bilirubin 1.2 mg/dL (0.2-1.0) H Urinalysis Test 03/02/25 10:36 Urine Color Light-yellow (Yellow) Urine Clarity Clear (Clear) Urine pH 6.0 (5.0-9.0) Urine Specific [place] 1.015 (1.001-1.035) Urine Protein Negative (Negative) Urine Ketones Negative (Negative) Urine Blood Negative /uL (Negative) Urine Nitrite Negative (Negative) Urine Bilirubin Negative (Negative) Urine Urobilinogen Normal mg/dL (Negative) Urine Leukocyte Esterase Negative /uL (Negative) Urine RBC <1 /hpf (0 - 3) Urine Microscopic WBC /HPF (0-3) Urine Squamous Epithelial Cells None seen /hpf (<5) Urine Bacteria None seen /hpf (None Seen) Urine Glucose Normal mg/dL (Normal) Assessment/Plan Assessment/Plan 69-year-old male with a known history of paroxysmal AFib currently on Eliquis, status post cardiac ablation in the past, history of right renal cell carcinoma status post right nephrectomy in 2010, status post pancreatic metastasis status post Whipple procedure, morbid obesity class who initially presented to the hospital as in his sent by [facility] for severe anemia found to have 1. Acute symptomatic anemia status post 2 units of packed RBC 2. Tarry stools rule out upper GI bleed 3. Renal cell malignancy status post right nephrectomy 4. Pancreatic med status post Whipple procedure 5. Paroxysmal AFib currently on Eliquis, previous history of cardiac ablation 6. Morbid obesity classIII -Protonix drip, transfuse as needed, GI consultation Plan discussed with: Patient Date of Service: Mar 03, 2025 Billing Provider: NATACHA NANCE MD Common Visit Codes: [id number] INP/OBS CARE(MOD) NATACHA NANCE MD Mar 03, 2025 16:19
[2025-03-03 22:54] LABS: Hemoglobin 7.8 g/dL (13.5-17.5)
[2025-03-03 22:57] LABS: Hematocrit 24.4 % (41.0-53.0)
[2025-03-04] VITALS (10 sets, daily range): BP systolic 108–150; BP diastolic 36–88; PULSE 58–71; RESP 12–20; TEMP 97.5–99; O2SAT 91–98
--- NOTE | 2025-03-04 01:01 | DVHPN2 ---
Progress Note - Dictate Date Seen: Mar 03, 2025 Medical Necessity Reason Pt with a Central, PICC or Fol: No Subjective Patient was seen and evaluated in follow up. Patient is resting in bed. HGB 7.8, HCT 24.4. Occult blood stool is positive. Patient is cardiac stable for procedure. Telemetry reviewed. vital signs Vital Sign Date Time Temp Pulse Resp B/P (MAP) Pulse Ox O2 Delivery O2 Flow Rate FiO2 03/03/25 21:00 98.9 69 16 160/66 (97) 95 98.9 03/03/25 20:00 Room Air* 0 21 Total Intake and Output 03/03/25 03/03/25 03/04/25 15:00 23:00 07:00 Intake Total 160 ml 390 ml Balance 160 ml 390 ml medications Current Medications Medications Dose Ordered Sig/Fransico Route Start Time Stop Time Status Last Admin Dose Admin Nitroglycerin 0.4 mg Q5MINP PRN SL 03/02/25 04:00 Morphine Sulfate 2 mg Q30M PRN IV 03/02/25 04:00 Metoprolol Succinate 25 mg DAILY PO 03/02/25 10:00 03/03/25 09:29 25 MG Flecainide Acetate 50 mg Q12HR PO 03/02/25 10:00 03/03/25 09:29 50 MG Pantoprazole Sodium 50 ml @ 10 mls/hr Q5H IV 03/02/25 05:00 03/03/25 21:41 10 MLS/HR Iron Sucrose 110 ml @ 110 mls/hr DAILY@1200 IV 03/02/25 12:00 03/06/25 12:59 03/03/25 12:10 110 MLS/HR objective GENERAL: Alert and oriented x 3. No acute distress. Obese. EYES: PERRL, EOMI. Anicteric. HENT: Moist mucous membranes. LUNGS: Clear to auscultation bilaterally. CARDIOVASCULAR: Regular rate and rhythm. ABDOMEN: Soft, nontender and nondistended. EXTREMITIES: No edema. NEUROLOGIC: No focal neurological deficits. SKIN: Warm, dry. laboratory and microbiology Laboratory Tests 03/03/25 22:26 03/03/25 07:38 Test 03/03/25 07:38 Range/Units Serum Glucose 102 74-106 mg/dL Problem List Paroxysmal atrial fibrillation, stage IIIA, now NSR (on Flecainide/BB/Eliquis at home). Rule out structural heart disease. Severe anemia with a associated lower GI bleed. Right renal cell carcinoma with METS to pancreas/lungs. Status post Whipple procedure and pulmonary cryoablation. Hypertension. Dyslipidemia. Obesity. Assessment/Plan Continued all current supportive medical care. Patient is cardiac stable for procedure. Metoprolol. Morphine for pain management. Protonix drip. Additional plan as per the hospital course. Plan discussed with: Patient CC Plasma Assessment Blood Product Administration S: [id number] TONY DANIELSON MD Mar 04, 2025 01:01
[2025-03-04 06:12] LABS: Hematocrit 24.6 % (41.0-53.0); Hemoglobin 7.9 g/dL (13.5-17.5); Mean Corpuscular Hemoglobin 24.9 pg (28.0-32.0); Mean Corpuscular Volume 77.8 fL (80.0-100.0); Nucleated Red Blood Cells % 0.2 %
[2025-03-04 06:24] LABS: Alanine Aminotransferase 12 U/L (7-40); Albumin 3.7 g/dL (3.2-4.8); Anion Gap 10 (5-15); BUN/Creatinine Ratio 10.0 (10.0-20.0); Bilirubin, Total 0.8 mg/dL (0.2-1.0); Blood Urea Nitrogen 15 mg/dL (9-23); Calcium 8.7 mg/dL (8.7-10.4); Carbon Dioxide 24 mmol/L (20-31); Glucose 92 mg/dL (74-106); Potassium 4.1 mmol/L (3.5-5.1); Sodium 144 mmol/L (136-145); Total Protein 6.4 g/dL (5.7-8.2)
[2025-03-04 06:28] LABS: Alkaline Phosphatase 133 U/L (46-116); Chloride 110 mmol/L (98-107)
[2025-03-04] MEDS ORDERED: METOCLOPRAMIDE HCL 5MG/ml INJ 2ml VIAL ONE (13:17)
[2025-03-04] MEDS ORDERED: PROPOFOL 10 MG/ML 20 ML IV ONE (13:17)
[2025-03-04] MEDS ORDERED: LIDOCAINE 2% (LOCAL ANESTH.) PF 5ml SDV ONE (13:17)
[2025-03-04] MEDS ORDERED: ONDANSETRON HCL 4 MG/2 ML VIAL ONE (13:17)
--- NOTE | 2025-03-04 13:45 | DVHOP2 ---
Operative Report DATE OF OPERATION: 03/04/25 PROCEDURE: Upper Endoscopy with biopsy PREOPERATIVE INDICATION: The patient is a 69 -year-old male undergoing endoscopy for melena and anemia POSTOPERATIVE DIAGNOSES: 1. Patient had a 2 cm anastomotic ulcer Davis classification C at the gastrojejunal anastomosis with no visible vessel and active bleeding 2. There was moderate gastritis of the gastric remnant otherwise normal examination up to the efferent loop of the gastrojejunostomy PROCEDURE PERFORMED BY: Jeane Guo GI NURSE: Favio SCOPE: Olympus videoendoscope. ASA CLASS: 3 PREOPERATIVE MEDICATIONS: Mac sedation, Xavier Santiago PROCEDURE IN DETAIL: After obtaining an informed consent, the patient was placed on left lateral decubitus position. The patient was then sedated with the above medications. A bite block was placed between his teeth. The endoscope was then passed through the oropharynx, into the esophagus, and through the stomach into the efferent loop Of the gastrojejunostomy. Patient had a prior report. There was a 2 cm anastomotic ulcer Davis classification C Between the six to 9 o'clock position. There was no visible vessel or active bleeding.There was no fresh or old blood in the upper GI tract. Patient's gastric remnant had moderate gastritis and gastric biopsies were obtained. Multiple biopsies were obtained The endoscope was then withdrawn. Patient had a 1 cm sliding-type hiatal hernia There was no significant erosive esophagitis the remaining esophagus was normal The patient tolerated the procedure well without difficulty. COMPLICATIONS : None SPECIMENS: Small-bowel biopsies Gastric biopsies DISPOSITION: Transfer back to the floor Stable PLAN: 1. Await for biopsy result 2. Will place pt on Protonix 40 mg bid IV 3. Carafate suspension 1 g p.o. 4 times a day 4. DC aspirin NSAIDs smoking alcohol 5. Resume full liquid diet and advance as tolerated 6. I would recommend holding Eliquis for another 3-5 days if possible JEANE GUO MD Mar 04, 2025 13:45
[2025-03-04] MEDS: SUCRALFATE 1 GM/10 ML ORAL SUSP PO SCH (16:19)
[2025-03-04] MEDS: PANTOPRAZOLE 40 MG TAB PO SCH (16:20)
--- NOTE | 2025-03-04 17:18 | DVHPN2 ---
Subjective Patient denies any complaints currently scheduled for EGD today. Changes from previous H/P or p: No Changes Eyes: No Pain, No Vision change, No Conjunctivae inflammation, No Eyelid inflammation, No Other, No Redness ENT: No Ear pain, No Ear discharge, No Nose pain, No Nose discharge, No Nose congestion, No Mouth pain, No Mouth swelling, No Throat pain, No Throat swelling, No Other Cardiovascular: No Chest Pain, No Palpitations, No Orthopnea, No Paroxysmal Noc. Dyspnea, No Edema, No Lt Headedness, No Other Respiratory: No Cough, No Dry, No Shortness of breath, No SOB with excertion, No Wheezing, No Hemoptysis, No Pleuritic Pain, No Sputum, No Other Gastrointestinal: No Nausea, No Vomiting, No Abdominal Pain, No Diarrhea, No Constipation, No Melena, No Hematochezia, No Other Genitourinary: No Dysuria, No Frequency, No Incontinence, No Hematuria, No Retention, No Other Musculoskeletal: No other, No neck pain, No shoulder pain, No arm pain, No back pain, No hand pain, No leg pain, No foot pain Objective Vitals Vital Signs Date Time Temp Pulse Resp B/P (MAP) Pulse Ox O2 Delivery O2 Flow Rate FiO2 03/04/25 17:03 98.7 62 20 137/69 (91) 92 98.7 03/04/25 14:16 Room Air 0 99 Intake/Output Intake and Output 03/04/25 06:59 Intake Total 700 ml Balance 700 ml Intake Oral 340 ml IV Total 360 ml # Voids 7 # Bowel Movements 1 Exam HEENT pupils are reactive Neck is supple CV is S1-S2 regular rate and rhythm Respiratory are clear GI posterior bowel sound Extremity 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 Medications Current Medications Medications Dose Ordered Sig/Fransico Route Start Time Stop Time Status Last Admin Dose Admin Nitroglycerin 0.4 mg Q5MINP PRN SL 03/02/25 04:00 Morphine Sulfate 2 mg Q30M PRN IV 03/02/25 04:00 Metoprolol Succinate 25 mg DAILY PO 03/02/25 10:00 03/03/25 09:29 25 MG Flecainide Acetate 50 mg Q12HR PO 03/02/25 10:00 03/03/25 09:29 50 MG Iron Sucrose 110 ml @ 110 mls/hr DAILY@1200 IV 03/02/25 12:00 10/9/25 12:59 03/04/25 12:02 110 MLS/HR Sucralfate 1 gm QID@0600,1130,1700,2200 PO 03/04/25 17:00 03/04/25 16:19 1 GM Pantoprazole Sodium 40 mg BID@0600,1700 PO 03/04/25 17:00 03/04/25 16:20 40 MG Laboratory Results Laboratory Tests 03/04/25 05:02 Chemistry Test 03/04/25 05:02 Albumin 3.7 g/dL (3.2-4.8) Calcium Level 8.7 mg/dL (8.7-10.4) Total Protein 6.4 g/dL (5.7-8.2) LFT Test 03/04/25 05:02 Alanine Aminotransferase (ALT) 12 U/L (7-40) Alkaline Phosphatase 133 U/L (46-116) H Aspartate Amino Transferase (AST) 17 U/L (13-40) Total Bilirubin 0.8 mg/dL (0.2-1.0) Urinalysis Test 03/02/25 10:36 Urine Color Light-yellow (Yellow) Urine Clarity Clear (Clear) Urine pH 6.0 (5.0-9.0) Urine Specific [place] 1.015 (1.001-1.035) Urine Protein Negative (Negative) Urine Ketones Negative (Negative) Urine Blood Negative /uL (Negative) Urine Nitrite Negative (Negative) Urine Bilirubin Negative (Negative) Urine Urobilinogen Normal mg/dL (Negative) Urine Leukocyte Esterase Negative /uL (Negative) Urine RBC <1 /hpf (0 - 3) Urine Microscopic WBC /HPF (0-3) Urine Squamous Epithelial Cells None seen /hpf (<5) Urine Bacteria None seen /hpf (None Seen) Urine Glucose Normal mg/dL (Normal) Assessment/Plan Assessment/Plan 69-year-old male with a known history of paroxysmal AFib currently on Eliquis, status post cardiac ablation in the past, history of right renal cell carcinoma status post right nephrectomy in 2010, status post pancreatic metastasis status post Whipple procedure, morbid obesity class who initially presented to the hospital as in his sent by [facility] for severe anemia found to have 1. Acute symptomatic anemia status post 2 units of packed RBC 2. Tarry stools rule out upper GI bleed 3. Renal cell malignancy status post right nephrectomy 4. Pancreatic med status post Whipple procedure 5. Paroxysmal AFib currently on Eliquis, previous history of cardiac ablation 6. Morbid obesity classIII -Protonix drip, transfuse as needed, EGD today. Plan discussed with: Patient, Spouse My Orders Orders - NATACHA NANCE MD Procedure Category Date Status Time Pantoprazole Tablet PHA 03/04/25 In Process (Protonix Tablet) 17:00 Cardiac DIET 03/04/25 Transmitted Diet-2gna,Lofat,Lochol Dinner Date of Service: Mar 04, 2025 Billing Provider: NATACHA NANCE MD Common Visit Codes: [id number] INP/OBS CARE(MOD) NATACHA NANCE MD Mar 04, 2025 17:18
[2025-03-05] VITALS (9 sets, daily range): BP systolic 104–132; BP diastolic 46–82; PULSE 65–120; RESP 14–20; TEMP 97.7–98.4; O2SAT 93–98
--- NOTE | 2025-03-05 00:45 | DVHPN2 ---
Progress Note - Dictate Date Seen: Mar 04, 2025 Medical Necessity Reason Pt with a Central, PICC or Fol: No Subjective Patient was seen and evaluated in follow up. Patient underwent EGD which showed a 2 cm anastomotic ulcer Davis classification C at the gastrojejunal anastomosis with no visible vessel and active bleeding, there was moderate gastritis of the gastric remnant otherwise normal examination up to the efferent loop of the gastrojejunostomy. HGB 7.9, HCT 24.6. Telemetry reviewed. vital signs Vital Sign Date Time Temp Pulse Resp B/P (MAP) Pulse Ox O2 Delivery O2 Flow Rate FiO2 03/04/25 21:00 98.5 67 16 108/36 (60) 91 98.5 03/04/25 20:00 Room Air* 0 21 Total Intake and Output 03/04/25 03/04/25 03/05/25 15:00 23:00 07:00 Intake Total 210 ml 150 ml Balance 210 ml 150 ml medications Current Medications Medications Dose Ordered Sig/Fransico Route Start Time Stop Time Status Last Admin Dose Admin Nitroglycerin 0.4 mg Q5MINP PRN SL 03/02/25 04:00 Morphine Sulfate 2 mg Q30M PRN IV 03/02/25 04:00 Metoprolol Succinate 25 mg DAILY PO 03/02/25 10:00 03/03/25 09:29 25 MG Flecainide Acetate 50 mg Q12HR PO 03/02/25 10:00 03/04/25 21:17 50 MG Iron Sucrose 110 ml @ 110 mls/hr DAILY@1200 IV 03/02/25 12:00 03/06/25 12:59 03/04/25 12:02 110 MLS/HR Sucralfate 1 gm QID@0600,1130,1700,2200 PO 03/04/25 17:00 03/04/25 21:18 1 GM Pantoprazole Sodium 40 mg BID@0600,1700 PO 03/04/25 17:00 03/04/25 16:20 40 MG objective GENERAL: Alert and oriented x 3. No acute distress. Obese. EYES: PERRL, EOMI. Anicteric. HENT: Moist mucous membranes. LUNGS: Clear to auscultation bilaterally. CARDIOVASCULAR: Regular rate and rhythm. ABDOMEN: Soft, nontender and nondistended. EXTREMITIES: No edema. NEUROLOGIC: No focal neurological deficits. SKIN: Warm, dry. laboratory and microbiology Laboratory Tests 03/04/25 05:02 Test 03/04/25 05:02 Range/Units Serum Glucose 92 74-106 mg/dL Problem List Paroxysmal atrial fibrillation, stage IIIA, now NSR (on Flecainide/BB/Eliquis at home). Rule out structural heart disease. Severe anemia with a associated lower GI bleed. Right renal cell carcinoma with METS to pancreas/lungs. Status post Whipple procedure and pulmonary cryoablation. Hypertension. Dyslipidemia. Obesity. Assessment/Plan Continued all current supportive medical care. Metoprolol. Morphine for pain management. Protonix. Nitro SL. Additional plan as per the hospital course. Plan discussed with: Patient CC Plasma Assessment Blood Product Administration S: [id number] TONY DANIELSON MD Mar 05, 2025 00:45
[2025-03-05 06:58] LABS: Hematocrit 26.3 % (41.0-53.0); Hemoglobin 8.3 g/dL (13.5-17.5); Mean Corpuscular Hemoglobin 25.0 pg (28.0-32.0)
[2025-03-05 07:02] LABS: Mean Corpuscular Volume 79.0 fL (80.0-100.0); Nucleated Red Blood Cells % 0.2 %
[2025-03-05 07:22] LABS: Alanine Aminotransferase 24 U/L (7-40); Albumin 3.9 g/dL (3.2-4.8); Anion Gap 12 (5-15); BUN/Creatinine Ratio 8.3 (10.0-20.0); Blood Urea Nitrogen 14 mg/dL (9-23); Calcium 8.8 mg/dL (8.7-10.4); Carbon Dioxide 22 mmol/L (20-31); Potassium 3.8 mmol/L (3.5-5.1); Sodium 143 mmol/L (136-145); Total Protein 6.9 g/dL (5.7-8.2)
[2025-03-05 07:26] LABS: Alkaline Phosphatase 250 U/L (46-116); Bilirubin, Total 2.2 mg/dL (0.2-1.0); Chloride 109 mmol/L (98-107); Glucose 141 mg/dL (74-106)
--- NOTE | 2025-03-05 08:58 | DVHSR ---
APPROVED REPORT EXAM: Two-dimensional and M-mode echocardiogram with Doppler and color Doppler. Blood Pressure: 112/48 mmHg INDICATION Atrial Fibrillation RISK FACTORS Obesity: Height: 6'1", Weight: 291 DIMENSIONS LVDd5.1 (3.8-5.7cm)LA (2D)5.0 (1.9-4.0cm)Aortic Root4.1 (2.0-3.7cm) LVDs3.3 (2.5-4.0cm)LA (MM) (1.9-4.0cm)Aortic Cusp Exc2.3 (1.5-2.0cm) EF (%) 60.0 (55-70%)Rt. Atrium4.7 (1.9-4.0cm)Asc. Aorta3.7 cm IVSd1.5 (0.7-1.1cm)RV (D) (1.8-2.4cm) PWd1.5 (0.7-1.1cm) Mitral Valve MitralMitral Stenosis E wave1.23m/sMV Mean GR.mmHg A wave1.03m/sMV Peak GR.mmHg E/A ratio1.22D MVAcm2 DECEL [id number] 1/2 Timems Aortic Valve Aortic ValveAortic Stenosis V11.15m/Aliyah Mean GR.4mmHg V21.34m/Aliyah Peak GR.7mmHg LVOT Diameter2.5 (1.8-2.4cm)Doppler AVA4.21cm2 Pulmonic Valve V20.99m/s Tricuspid Valve TR Velocity3.01m/s [id number] Other Information Technically limited study due to body habitus. Conclusion MILD LVH AND MILD LV DIASTOLIC DYSFUNCTION LV EF IS 65% AND IS NORMAL POSTERIOR MITRAL LEAFLET IS HEAVILY CALCIFIED MODERATELY DILATED LA AORTIC SCLEROSIS MODERATE DEGREE PULMONARY HYPERTENSION RVSP IS 44 MM OF HG AND IS MODERATELY HIGH NO EFFUSION MODERATELY DILATED RV AND RA
[2025-03-05 15:46] LABS: Hematocrit 27.3 % (41.0-53.0); Hemoglobin 7.6 g/dL (13.5-17.5)
--- NOTE | 2025-03-05 17:09 | DVHPN2 ---
Subjective Patient is status post EGD today showed 2 cm anastomotic ulcer at gastro jejunal site also gastritis of the gastric remnant of the anastomosis. Changes from previous H/P or p: No Changes Eyes: No Pain, No Vision change, No Conjunctivae inflammation, No Eyelid inflammation, No Other, No Redness ENT: No Ear pain, No Ear discharge, No Nose pain, No Nose discharge, No Nose congestion, No Mouth pain, No Mouth swelling, No Throat pain, No Throat swelling, No Other Cardiovascular: No Chest Pain, No Palpitations, No Orthopnea, No Paroxysmal Noc. Dyspnea, No Edema, No Lt Headedness, No Other Respiratory: No Cough, No Dry, No Shortness of breath, No SOB with excertion, No Wheezing, No Hemoptysis, No Pleuritic Pain, No Sputum, No Other Gastrointestinal: No Nausea, No Vomiting, No Abdominal Pain, No Diarrhea, No Constipation, No Melena, No Hematochezia, No Other Genitourinary: No Dysuria, No Frequency, No Incontinence, No Hematuria, No Retention, No Other Musculoskeletal: No other, No neck pain, No shoulder pain, No arm pain, No back pain, No hand pain, No leg pain, No foot pain Objective Vitals Vital Signs Date Time Temp Pulse Resp B/P (MAP) Pulse Ox O2 Delivery O2 Flow Rate FiO2 03/05/25 16:54 97.7 67 18 104/57 (73) 97 97.7 03/05/25 07:54 Room Air* 0 21 Intake/Output Intake and Output 03/05/25 07:00 Intake Total 860 ml Balance 860 ml Intake Oral 650 ml IV Total 210 ml # Voids 5 # Bowel Movements 1 Exam HEENT pupils are reactive Neck is supple CV is S1-S2 regular rate and rhythm Respiratory are clear GI posterior bowel sound 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 Medications Current Medications Medications Dose Ordered Sig/Fransico Route Start Time Stop Time Status Last Admin Dose Admin Nitroglycerin 0.4 mg Q5MINP PRN SL 03/02/25 04:00 Morphine Sulfate 2 mg Q30M PRN IV 03/02/25 04:00 Metoprolol Succinate 25 mg DAILY PO 03/02/25 10:00 03/05/25 10:16 25 MG Flecainide Acetate 50 mg Q12HR PO 03/02/25 10:00 03/05/25 10:15 50 MG Iron Sucrose 110 ml @ 110 mls/hr DAILY@1200 IV 03/02/25 12:00 03/06/25 12:59 03/05/25 13:53 110 MLS/HR Sucralfate 1 gm QID@0600,1130,1700,2200 PO 03/04/25 17:00 03/05/25 13:52 1 GM Pantoprazole Sodium 40 mg BID@0600,1700 PO 03/04/25 17:00 03/05/25 06:19 40 MG Laboratory Results Laboratory Tests 03/05/25 05:59 03/05/25 15:05 Chemistry Test 03/05/25 05:59 Albumin 3.9 g/dL (3.2-4.8) Calcium Level 8.8 mg/dL (8.7-10.4) Total Protein 6.9 g/dL (5.7-8.2) LFT Test 03/05/25 05:59 Alanine Aminotransferase (ALT) 24 U/L (7-40) Alkaline Phosphatase 250 U/L (46-116) H Aspartate Amino Transferase (AST) 57 U/L (13-40) H Total Bilirubin 2.2 mg/dL (0.2-1.0) H Urinalysis Test 03/02/25 10:36 Urine Color Light-yellow (Yellow) Urine Clarity Clear (Clear) Urine pH 6.0 (5.0-9.0) Urine Specific [place] 1.015 (1.001-1.035) Urine Protein Negative (Negative) Urine Ketones Negative (Negative) Urine Blood Negative /uL (Negative) Urine Nitrite Negative (Negative) Urine Bilirubin Negative (Negative) Urine Urobilinogen Normal mg/dL (Negative) Urine Leukocyte Esterase Negative /uL (Negative) Urine RBC <1 /hpf (0 - 3) Urine Microscopic WBC /HPF (0-3) Urine Squamous Epithelial Cells None seen /hpf (<5) Urine Bacteria None seen /hpf (None Seen) Urine Glucose Normal mg/dL (Normal) Assessment/Plan Assessment/Plan 69-year-old male with a known history of paroxysmal AFib currently on Eliquis, status post cardiac ablation in the past, history of right renal cell carcinoma status post right nephrectomy in 2010, status post pancreatic metastasis status post Whipple procedure, morbid obesity class who initially presented to the hospital as in his sent by [facility] for severe anemia found to have 1. Acute symptomatic anemia status post 2 units of packed RBC 2. Black tarry stools, status post EGD showed evidence of1. Patient had a 2 cm anastomotic ulcer Davis classification C at the gastrojejunal anastomosis with no visible vessel and active bleeding 2. There was moderate gastritis of the gastric remnant otherwise normal examination up to the efferent loop of the gastrojejunostomy 3. Renal cell malignancy status post right nephrectomy 4. Pancreatic med status post Whipple procedure 5. Paroxysmal AFib currently on Eliquis, previous history of cardiac ablation 6. Morbid obesity classIII -Protonix, Carafate, hold Eliquis for now, PT evaluation and treatment, discharge plan Plan discussed with: Patient, Spouse My Orders Orders - NATACHA NANCE MD Procedure Category Date Status Time Electrocardigram EKG 03/05/25 Logged 14:56 Date of Service: Mar 05, 2025 Billing Provider: NATACHA NANCE MD Common Visit Codes: [id number] INP/OBS CARE(MOD) NATACHA NANCE MD Mar 05, 2025 17:09
--- NOTE | 2025-03-05 20:56 | DVHPN2 ---
Progress Note - Dictate Date Seen: Mar 05, 2025 Medical Necessity Reason Pt with a Central, PICC or Fol: No Subjective No new complaints, resting comfortably Patient still is very weak and had difficulty with ambulation Patient states the stool is starting to lighten up Patient is getting IV iron EGD findings reviewed with the patient ; anastomotic ulcer Patient was under stress lately because of family issues but denied NSAID use vital signs Vital Sign Date Time Temp Pulse Resp B/P (MAP) Pulse Ox O2 Delivery O2 Flow Rate FiO2 03/05/25 16:54 97.7 67 18 104/57 (73) 97 97.7 03/05/25 07:54 Room Air* 0 21 Total Intake and Output 03/04/25 03/04/25 03/05/25 15:00 23:00 07:00 Intake Total 210 ml 150 ml 500 ml Balance 210 ml 150 ml 500 ml medications Current Medications Medications Dose Ordered Sig/Fransico Route Start Time Stop Time Status Last Admin Dose Admin Nitroglycerin 0.4 mg Q5MINP PRN SL 03/02/25 04:00 Morphine Sulfate 2 mg Q30M PRN IV 03/02/25 04:00 Metoprolol Succinate 25 mg DAILY PO 03/02/25 10:00 03/05/25 10:16 25 MG Flecainide Acetate 50 mg Q12HR PO 03/02/25 10:00 03/05/25 10:15 50 MG Iron Sucrose 110 ml @ 110 mls/hr DAILY@1200 IV 03/02/25 12:00 03/06/25 12:59 03/05/25 13:53 110 MLS/HR Sucralfate 1 gm QID@0600,1130,1700,2200 PO 03/04/25 17:00 03/05/25 17:29 1 GM Pantoprazole Sodium 40 mg BID@0600,1700 PO 03/04/25 17:00 03/05/25 17:29 40 MG objective HEENT pupils are reactive Neck is supple CV is S1-S2 regular rate and rhythm Respiratory are clear GI posterior bowel sound 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 twice a day Carafate 1 g p.o. twice a day Patient may need long-term maintenance with PPI Avoid aspirin NSAIDs Continue IV iron Resume Eliquis in another 48-72 hours Plan discussed with: Patient, Spouse, Other (Dr Roland) CC Plasma Assessment Blood Product Administration S: [id number] JEANE HAAS MD Mar 05, 2025 20:56
--- NOTE | 2025-03-05 23:30 | DVHPN2 ---
Progress Note - Dictate Date Seen: Mar 05, 2025 Medical Necessity Reason Pt with a Central, PICC or Fol: No Subjective Patient was seen and evaluated in follow up. Patient is status post EGD today showed 2 cm anastomotic ulcer at gastro jejunal site also gastritis of the gastric remnant of the anastomosis. WBC 19.1, HGB 8.3, HCT 26.3, RAMP ATTENDANT 1.68, CA 8.3, AST 57. Telemetry reviewed. vital signs Vital Sign Date Time Temp Pulse Resp B/P (MAP) Pulse Ox O2 Delivery O2 Flow Rate FiO2 03/05/25 13:00 97.7 75 18 104/46 (65) 94 97.7 03/05/25 07:54 Room Air* 0 21 Total Intake and Output 03/04/25 03/04/25 03/05/25 15:00 23:00 07:00 Intake Total 210 ml 150 ml 500 ml Balance 210 ml 150 ml 500 ml medications Current Medications Medications Dose Ordered Sig/Fransico Route Start Time Stop Time Status Last Admin Dose Admin Nitroglycerin 0.4 mg Q5MINP PRN SL 03/02/25 04:00 Morphine Sulfate 2 mg Q30M PRN IV 03/02/25 04:00 Metoprolol Succinate 25 mg DAILY PO 03/02/25 10:00 03/05/25 10:16 25 MG Flecainide Acetate 50 mg Q12HR PO 03/02/25 10:00 03/05/25 10:15 50 MG Iron Sucrose 110 ml @ 110 mls/hr DAILY@1200 IV 03/02/25 12:00 03/06/25 12:59 03/04/25 12:02 110 MLS/HR Sucralfate 1 gm QID@0600,1130,1700,2200 PO 03/04/25 17:00 03/05/25 06:19 1 GM Pantoprazole Sodium 40 mg BID@0600,1700 PO 03/04/25 17:00 03/05/25 06:19 40 MG objective GENERAL: Alert and oriented x 3. No acute distress. Obese. EYES: PERRL, EOMI. Anicteric. HENT: Moist mucous membranes. LUNGS: Clear to auscultation bilaterally. CARDIOVASCULAR: Regular rate and rhythm. ABDOMEN: Soft, nontender and nondistended. EXTREMITIES: No edema. NEUROLOGIC: No focal neurological deficits. SKIN: Warm, dry. laboratory and microbiology Laboratory Tests 03/05/25 05:59 Test 03/05/25 05:59 Range/Units Serum Glucose 141 H 74-106 mg/dL Problem List Paroxysmal atrial fibrillation, stage IIIA, now NSR (on Flecainide/BB/Eliquis at home). Rule out structural heart disease. Severe anemia with a associated lower GI bleed. Right renal cell carcinoma with METS to pancreas/lungs. Status post Whipple procedure and pulmonary cryoablation. Hypertension. Dyslipidemia. Obesity. Assessment/Plan Continued all current supportive medical care. Metoprolol. Protonix. Nitro SL. Morphine for pain management. Additional plan as per the hospital course. Plan discussed with: Patient CC Plasma Assessment Blood Product Administration S: [id number] TONY DANIELSON MD Mar 05, 2025 13:50
[2025-03-06] VITALS (7 sets, daily range): BP systolic 115–129; BP diastolic 62–68; PULSE 64–71; RESP 14–17; TEMP 97.5–98; O2SAT 91–95
[2025-03-06 05:29] LABS: Nucleated Red Blood Cells % 0.0 %
[2025-03-06 05:32] LABS: Hematocrit 24.4 % (41.0-53.0); Hemoglobin 7.6 g/dL (13.5-17.5); Mean Corpuscular Hemoglobin 25.2 pg (28.0-32.0); Mean Corpuscular Volume 81.5 fL (80.0-100.0)
[2025-03-06 06:14] LABS: Alanine Aminotransferase 34 U/L (7-40); Albumin 3.5 g/dL (3.2-4.8); Anion Gap 12 (5-15); BUN/Creatinine Ratio 8.5 (10.0-20.0); Bilirubin, Total 0.8 mg/dL (0.2-1.0); Blood Urea Nitrogen 14 mg/dL (9-23); Carbon Dioxide 22 mmol/L (20-31); Potassium 3.9 mmol/L (3.5-5.1); Sodium 142 mmol/L (136-145); Total Protein 6.3 g/dL (5.7-8.2)
[2025-03-06 06:20] LABS: Alkaline Phosphatase 202 U/L (46-116); Calcium 8.5 mg/dL (8.7-10.4); Chloride 108 mmol/L (98-107); Glucose 119 mg/dL (74-106)
--- NOTE | 2025-03-06 09:50 | ECG ---
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
[2025-03-06] MEDS ORDERED: SUCR1SUS26 PO (14:38)
[2025-03-06] MEDS ORDERED: PANT40T PO (14:38)
--- NOTE | 2025-03-06 14:42 | DVHDS2 ---
Discharge Summary Date of Admission Mar 02, 2025 at 03:53 Date of Discharge: Mar 06, 2025 Labs/Diagnostic Data: Laboratory Results Test 03/06/25 05:06 03/03/25 07:38 03/02/25 17:00 03/02/25 10:36 White Blood Count 15.8 10^3/uL (4.4-10.8) Red Blood Count 2.99 10^6/uL (4.5-5.90) Hemoglobin 7.6 g/dL (13.5-17.5) Hematocrit 24.4 % (41.0-53.0) Mean Corpuscular Volume 81.5 fL (80.0-100.0) Mean Corpuscular Hemoglobin 25.2 pg (28.0-32.0) Mean Corpuscular Hemoglobin Concent 31.0 g/dL (32.0-36.0) Red Cell Distribution Width 21.8 % (11.8-14.3) Platelet Count 332 10^3/uL (140-450) Mean Platelet Volume 7.2 fL (6.9-10.8) Neutrophils (%) (Auto) 86.6 % (37.0-80.0) Lymphocytes (%) (Auto) 6.9 % (10.0-50.0) Monocytes (%) (Auto) 4.5 % (0.0-12.0) Eosinophils (%) (Auto) 1.6 % (0.0-7.0) Basophils (%) (Auto) 0.4 % (0.0-2.0) Neutrophils # (Auto) 13.7 10 ^3/uL (1.6-8.6) Lymphocytes # (Auto) 1.1 10 ^3/uL (0.4-5.4) Monocytes # (Auto) 0.7 10 ^3/uL (0-1.3) Eosinophils # (Auto) 0.2 10 ^3/uL (0-0.8) Basophils # (Auto) 0.1 10 ^3/uL (0-0.2) Nucleated Red Blood Cells 0.0 % Sodium Level 142 mmol/L (136-145) Potassium Level 3.9 mmol/L (3.5-5.1) Chloride Level 108 mmol/L (98-107) Carbon Dioxide Level 22 mmol/L (20-31) Anion Gap 12 (5-15) Blood Urea Nitrogen 14 mg/dL (9-23) Creatinine 1.64 mg/dL (0.700-1.30) Glomerular Filtration Rate Calc 45 mL/min (>90) BUN/Creatinine Ratio 8.5 (10.0-20.0) Serum Glucose 119 mg/dL (74-106) Calcium Level 8.5 mg/dL (8.7-10.4) Total Bilirubin 0.8 mg/dL (0.2-1.0) Aspartate Amino Transferase (AST) 48 U/L (13-40) Alanine Aminotransferase (ALT) 34 U/L (7-40) Alkaline Phosphatase 202 U/L (46-116) Total Protein 6.3 g/dL (5.7-8.2) Albumin 3.5 g/dL (3.2-4.8) Magnesium Level 2.1 mg/dL (1.6-2.6) Stool Occult Blood Positive (Negative) Stool Occult Blood Sample #3 (Negative) Urine Color Light-yellow (Yellow) Urine Clarity Clear (Clear) Urine pH 6.0 (5.0-9.0) Urine Specific [place] 1.015 (1.001-1.035) Urine Protein Negative (Negative) Urine Ketones Negative (Negative) Urine Blood Negative /uL (Negative) Urine Nitrite Negative (Negative) Urine Bilirubin Negative (Negative) Urine Urobilinogen Normal mg/dL (Negative) Urine Leukocyte Esterase Negative /uL (Negative) Urine RBC <1 /hpf (0 - 3) Urine Microscopic WBC /HPF (0-3) Urine Squamous Epithelial Cells None seen /hpf (<5) Urine Bacteria None seen /hpf (None Seen) Urine Glucose Normal mg/dL (Normal) Test 03/02/25 02:31 03/02/25 01:01 Troponin I High Sensitivity 5 ng/L (</=54) Platelet Estimate [place] Large Platelets Few Hypochromasia (manual) Moderate Microcytosis Slight Ovalocytes Few Stomatocytes Few Prothrombin Time 11.3 sec (9.3-11.8) Prothrombin Time INR 1.07 (0.9-1.15) Activated Partial Thromboplast Time 27.9 SEC (24.5-34.5) Iron Level 14 ug/dL (65-175) Total Iron Binding Capacity 365 ug/dL (250-425) Percent Iron Saturation 3.8 % (20-55) Ferritin 8.5 ng/mL (22-322) B-Type Natriuretic Peptide 34.79 pg/mL (0-100) Vitamin B12 Level 716 pg/mL (211-911) Vitamin D 25-Hydroxy 54.5 ng/mL (30.0-100) Folic Acid 16.59 ng/mL (>5.38) Thyroid Stimulating Hormone (TSH) 2.40 uIU/mL (0.55-4.78) Other Laboratory Tests 03/06/25 05:06 Brief Hx & Hospital Course: 69-year-old male with a known history of paroxysmal AFib currently on Eliquis, status post cardiac ablation in the past, history of right renal cell carcinoma status post right nephrectomy in 2010, status post pancreatic metastasis status post Whipple procedure, morbid obesity classIII who initially presented to the hospital as in his sent by [facility] for severe anemia found to have . m going to acute symptomatic anemia status post 2 units of packed RBC. GI was consulted because patient was having black tarry stools patient's was on Eliquis which was held. Patient underwent EGD which shows evidence of 2 cm anastomotic ulcer at the gastrojejunal anastomosis with a no visible vessel and active bleeding and there was moderate gastritis as well. Patient's postprocedure was feeling generalized weakness eventually kept him for physical therapy. Patient's Eliquis was supposed to be resumed on Monday as per GI recommendations. Diet weight reduction and exercise counseling as he has morbid obesity classII. Patient is being discharged under stable condition with a close follow up as an outpatient with the PCP as well as GI to follow up on the gastric biopsy to rule out H pylori. Condition at Discharge: Stable Final Diagnosis/Problems List 69-year-old male with a known history of paroxysmal AFib currently on Eliquis, status post cardiac ablation in the past, history of right renal cell carcinoma status post right nephrectomy in 2010, status post pancreatic metastasis status post Whipple procedure, morbid obesity class who initially presented to the hospital as in his sent by [facility] for severe anemia found to have 1. Acute symptomatic anemia status post 2 units of packed RBC 2. Black tarry stools, status post EGD showed evidence of - Patient has a 2 cm anastomotic ulcer Davis classification C at the gastrojejunal anastomosis with no visible vessel and active bleeding - There was moderate gastritis of the gastric remnant otherwise normal examination up to the efferent loop of the gastrojejunostomy 3. Renal cell malignancy status post right nephrectomy 4. Pancreatic med status post Whipple procedure 5. Paroxysmal AFib currently on Eliquis, previous history of cardiac ablation 6. Morbid obesity classIII Discharge Disposition: Home SNF Discharge Will this Physician continue t: No Discharge Instruct/Medications Diet: Cardiac 2g Na,low cholest Activity: No Restrictions, As Tolerated Follow Up/Referral: Follow up PCP in 1-2 weeks follow up with GI Dr. Jennifer Guo in 1-2 weeks -request [facility] Medical acute follow up final gastric sent for biopsy Medications: Protonix and Carafate as prescribed New Medications: Pantoprazole Sodium Sesquihydr (Pantoprazole Sodium) 40 Mg Tab 40 MG PO BID@0600,1700, #60 TAB Sucralfate (Carafate Susp) 1 Gm/10 Ml Ss 1 GM PO QID@0600,1130,1700,2200 for 30 Days, #1200 ML Continued Medications: Colesevelam Hcl (Welchol) 3.75 Gm Jt 625 MG PO BID, PACK Scheduled Colesevelam Hcl (Welchol), 625 MG PO BID, (Reported) Pantoprazole Sodium Sesquihydr (Pantoprazole Sodium), 40 MG PO BID@0600,1700 Sucralfate (Carafate Susp), 1 GM PO QID@0600,1130,1700,2200 Discharge Statement: "Patient was advised to return to the ER or call 911 if any headaches, dizziness, shortness of breath, chest pain, abdominal pain, bleeding, fevers, or worsening of medical condition. Patient was counseled about treatment plan, medications, possible side effects, patientverbalized understanding. All questions were answered to the best of my ability. This discharge took greater then 30 minutes in planning, reviewing documentation, counseling the patient, and discussing with other team members." ASSESSMENT ASSESSMENT Assessment 69-year-old male with a known history of paroxysmal AFib currently on Eliquis, status post cardiac ablation in the past, history of right renal cell carcinoma status post right nephrectomy in 2010, status post pancreatic metastasis status post Whipple procedure, morbid obesity class who initially presented to the hospital as in his sent by [facility] for severe anemia found to have 1. Acute symptomatic anemia status post 2 units of packed RBC 2. Black tarry stools, status post EGD showed evidence of - Patient has a 2 cm anastomotic ulcer Davis classification C at the gastrojejunal anastomosis with no visible vessel and active bleeding - There was moderate gastritis of the gastric remnant otherwise normal examination up to the efferent loop of the gastrojejunostomy 3. Renal cell malignancy status post right nephrectomy 4. Pancreatic med status post Whipple procedure 5. Paroxysmal AFib currently on Eliquis, previous history of cardiac ablation 6. Morbid obesity classIII Date of Service: Mar 06, 2025 Billing Provider: NATACHA NANCE MD Common Visit Codes: 55123-UQT/OBS DISCH DAY >30min NATACHA NANCE MD Mar 06, 2025 14:42
--- NOTE | 2025-03-06 23:55 | DVHPN2 ---
Progress Note - Dictate Date Seen: Mar 06, 2025 Medical Necessity Reason Pt with a Central, PICC or Fol: No Subjective Patient was seen and evaluated in follow up. Patient has no new complaints at this time. Patient denies any cardiac symptoms. Patient is cardiac stable for discharge. Telemetry reviewed. vital signs Vital Sign Date Time Temp Pulse Resp B/P (MAP) Pulse Ox O2 Delivery O2 Flow Rate FiO2 03/06/25 13:00 97.5 64 17 129/66 (87) 95 97.5 03/06/25 08:05 Room Air* 0 21 Total Intake and Output 03/05/25 03/05/25 03/06/25 15:00 23:00 07:00 Intake Total 930 ml 2000 ml 1150 ml Balance 930 ml 2000 ml 1150 ml medications Current Medications Medications Dose Ordered Sig/Fransico Route Start Time Stop Time Status Last Admin Dose Admin Nitroglycerin 0.4 mg Q5MINP PRN SL 03/02/25 04:00 Morphine Sulfate 2 mg Q30M PRN IV 03/02/25 04:00 Metoprolol Succinate 25 mg DAILY PO 03/02/25 10:00 03/06/25 10:02 25 MG Flecainide Acetate 50 mg Q12HR PO 03/02/25 10:00 03/06/25 10:00 50 MG Sucralfate 1 gm QID@0600,1130,1700,2200 PO 03/04/25 17:00 03/06/25 11:38 1 GM Pantoprazole Sodium 40 mg BID@0600,1700 PO 03/04/25 17:00 03/06/25 05:25 40 MG objective GENERAL: Alert and oriented x 3. No acute distress. Obese. EYES: PERRL, EOMI. Anicteric. HENT: Moist mucous membranes. LUNGS: Clear to auscultation bilaterally. CARDIOVASCULAR: Regular rate and rhythm. ABDOMEN: Soft, nontender and nondistended. EXTREMITIES: No edema. NEUROLOGIC: No focal neurological deficits. SKIN: Warm, dry. laboratory and microbiology Laboratory Tests 03/06/25 05:06 Test 03/06/25 05:06 Range/Units Serum Glucose 119 H 74-106 mg/dL Problem List Paroxysmal atrial fibrillation, stage IIIA, now NSR (on Flecainide/BB/Eliquis at home). Rule out structural heart disease. Severe anemia with a associated lower GI bleed. Right renal cell carcinoma with METS to pancreas/lungs. Status post Whipple procedure and pulmonary cryoablation. Hypertension. Dyslipidemia. Obesity. Assessment/Plan Continued all current supportive medical care. Metoprolol. Protonix. Nitro SL. Morphine for pain management. Additional plan as per the hospital course. Plan discussed with: Patient CC Plasma Assessment Blood Product Administration S: 03:26 TONY DANIELSON MD Mar 06, 2025 14:54
[2025-03-07 13:35] LABS: Hepatitis A Total Antibody Positive (Negative); Hepatitis B Surface Antigen Negative (Negative); Hepatitis C Antibody Negative (Negative)
== END 2025-03-06 16:31 | disposition home or self-care (01) | DRG 811 ==
LOC: ER → OVERFLOW 03:53 → TELE-CENTR 06:20
PROVIDERS: ADMIT Internal Medicine; ATTEND Internal Medicine
PROC: 30233N1 Transfusion of Nonautologous Red Blood Cells into Peripheral Vein, Percutaneous Approach (ICD-10-PCS; principal; 2025-03-02)
PROC: 0DB68ZX Excision of Stomach, Via Natural or Artificial Opening Endoscopic, Diagnostic (ICD-10-PCS; 2025-03-04)
PROC: 0DB88ZX Excision of Small Intestine, Via Natural or Artificial Opening Endoscopic, Diagnostic (ICD-10-PCS; 2025-03-04)
DX: D50.9 Iron deficiency anemia, unspecified (principal); K28.4 Chronic or unspecified gastrojejunal ulcer with hemorrhage; K29.71 Gastritis, unspecified, with bleeding; I48.21 Permanent atrial fibrillation; Z68.41 Body mass index [BMI] 40.0-44.9, adult; N18.31 Chronic kidney disease, stage 3a; E78.5 Hyperlipidemia, unspecified; I51.7 Cardiomegaly; I12.9 Hypertensive chronic kidney disease with stage 1 through stage 4 chronic kidney disease, or unspecified chronic kidney disease; E66.9 Obesity, unspecified; E66.01 Morbid (severe) obesity due to excess calories; K44.9 Diaphragmatic hernia without obstruction or gangrene; Z79.01 Long term (current) use of anticoagulants; Z82.49 Family history of ischemic heart disease and other diseases of the circulatory system; Z85.528 Personal history of other malignant neoplasm of kidney; Z90.411 Acquired partial absence of pancreas; Z90.5 Acquired absence of kidney; Z90.49 Acquired absence of other specified parts of digestive tract; Z88.8 Allergy status to other drugs, medicaments and biological substances; Z79.899 Other long term (current) drug therapy
CPT/HCPCS: 36415; 36430; 71045; 80048; 80053; 81001; 82270; 82306; 82607; 82728; 82746; 83540; 83550; 83735; 83880; 84443; 84484; 85014; 85018; 85025; 85610; 85730; 86704; 86706; 86708; 86803; 86850; 86900; 86901; 86920; 87340; 93005; 93306; 96365; 97163; 99291; 99292; G0378; J1756; J2003; J2405; J2470; J2704